=== PATIENT | female | born 1975 | race Caucasian/White ===

== ENCOUNTER 2016-05-22 14:36 | Emergency (ER) | payer OTHER ==
[~2016-05-22] VITALS: Ht 172.7 cm; Wt 87.4 kg
[~2016-05-22 14:36] MED LIST: CITA40TA4 PO; GABA-112 PO; HYDR-5688 PO; IBUP-103 PO; METH4PAK4 PO; ZNF4 PO
[2016-05-22 14:39] VITALS: BP 128/90; PULSE 105; TEMP 36.7; O2SAT 97; Ht 172.7 cm; Wt 87.4 kg
[2016-05-22] MEDS ORDERED: CLINDAMYCIN HCL 150 MG CAP PO ONE (15:15)
[2016-05-22] MEDS ORDERED: CLIN300C2 PO (15:24)
--- NOTE | 2016-05-22 15:25 | EMERGENCY ROOM VISIT NOTE ---
ED Visit Note First contact with patient: 15:06 CHIEF COMPLAINT: Left lower dental pain 1 week HISTORY OF PRESENT ILLNESS: Patient is a 40-year-old white female who presents emergency department for evaluation of left lower dental pain. Her symptoms started a couple of weeks ago. She was at the dentist last week and actually had the adjacent tooth taken care of, but they ran at a time before they could address the tooth in question. She notes progressively worse pain radiating to her jaw and her ear. She has an appointment with her dentist in 2 days. She has chronic pain related to her connective tissue disease and has W[place]ash 5/125 mg tablets at home. She's been taking one every 4 hours, but is only helping to take the edge off of her pain. She has not tried any ibuprofen. She notes swelling on the jawline that began today. No drainage or discharge from the tooth. No fever. REVIEW OF SYSTEMS: Review of systems as per HPI. All other systems reviewed were negative. At least 6 systems reviewed. PMH: Electronic medical records are reviewed and summarized as above/below. See Problem List. SOCIAL HISTORY: Patient lives at home. Smoker. PHYSICAL EXAM: Vital Signs: Reviewed Nurse's notes. CONSTITUTIONAL: Patient is a well-appearing 40-year-old white female who is awake and alert and in no acute distress. Vital signs are stable. EARS: Tympanic membranes intact, not inflamed, have normal contour. External canals clear. MOUTH: Overall the patient has fair dentition. She has multiple fillings and is status post multiple extractions. The left lower first molar in question has an obvious cavity, and is tender to percussion. There is slight swelling along the gumline although no focal abscess. Mucous membranes moist, no lesions , tongue and gums appear normal. THROAT: No pharyngeal injection, exudates, or tonsillar hypertrophy. Airway is patent. No trismus noted. FACE: Slight swelling noted along the right jaw line. No cellulitic changes. NECK: No lymphadenopathy. ED course: The patient was seen and assessed as above. She states that she can tolerate penicillin and amoxicillin, but generally responds better to clindamycin for dental issues. She was given 300 mg orally in the emergency department. She was instructed to follow-up with her dentist as she has scheduled. She was advised that she could increase the amount of hydrocodone that she is taking 21-2 tablets every 4 hours as needed for pain. She does not have any evidence for drainable abscess or facial cellulitis. I do not find any evidence for Benji angina. Problem List Medical Problems: (1) Asthma, Unspecified Status: Chronic (2) Chronic pain syndrome Status: Chronic (3) Diab Maria Guadalupe Wo Compl, Type Ii Or Unspec Type, Not Uncntrld Status: Resolved (4) Romero-Danlos syndrome Status: Chronic (5) Lumbar back pain Status: Resolved Surgical Problems: (1) History of dilatation and curettage Status: Resolved (2) History of tonsillectomy Status: Resolved (3) Hx of section Status: Resolved Current/Historical Medications Scheduled Citalopram (Citalopram Hydrobromide), 1 TAB PO HS Clindamycin Hcl (Cleocin), 1 CAP PO TID Gabapentin (Neurontin), 100 MG PO TID Methylprednisolone Dosepak (Medrol Dosepak), 0 PO DAILY Tizanidine (Zanaflex ), 4 MG PO HS Scheduled PRN Hydrocodone/Acetaminophen 5MG/325MG ([place] 5MG/325MG), 1-2 TABLET PO Q4H PRN for Pain Ibuprofen Tab (Advil), 800 MG PO Q6H PRN for Pain Allergies Coded Allergies: Amoxicillin (Verified Allergy, Unknown, Unknown Rxn, 01/07/16) Clavulanic Acid (Verified Allergy, Unknown, Unknown Rxn, 01/07/16) Vital Signs Date Time Temp Pulse Resp B/P Pulse Ox O2 Delivery O2 Flow Rate FiO2 05/22/16 14:39 36.7 105 18 128/90 97 Room Air Medications Administered Medications (Trade) Dose Ordered Sig/Lalo Route Start Time Stop Time Status Last Admin Dose Admin Clindamycin HCl (Cleocin Cap) 300 mg ONE ONCE PO 05/22/16 15:15 05/22/16 15:16 DC 05/22/16 15:30 300 MG Departure Information Impression Primary Impression: Dentalgia Prescriptions Clindamycin Hcl (CLEOCIN) 300 Mg Cap 1 CAP PO TID for 10 Days, #30 CAP Prov: Nahed Crandall PA 05/22/16 Referrals No Doctor, Assigned (PCP) Patient Instructions A Signature Page, [employer] Additional Instructions Continue [place] as prescribed for pain. Clindamycin 300 mg 1 tablet 3 times daily for 10 days for infection, finished this antibiotic unless instructed otherwise by your dentist. All antibiotics can cause diarrhea. If this occurs and you feel worse or it does not resolve in 1-2 days follow up with your doctor or return to the Emergency Department as this could be signs of serious underlying problems. Any medication can cause an allergic reaction, stop the pills immediately and return to the ER for rash, hives, breathing difficulties, or swelling. Ibuprofen(Motrin, Advil) may be used for fever or pain. Use 600mg every six hours as needed. Take with food. Avoid using more than 2400mg in a 24 hour period. Do not use 2400mg per day for more than three consecutive days without physician direction. Prolonged inappropriate use can lead to stomach upset or ulcers. Saltwater gargles after meals and before bedtime. Soft foods. Followup with your dentist for definitive management. You may also follow up with your primary care physician for pain/care management until you can be seen by your dentist.
[2016-08-12] MEDS ORDERED: BNT10 PO (14:50)
== END 2016-05-22 15:33 | disposition home or self-care (01) ==
LOC: C.EDB 14:37 → C.EDD 15:33
DX: K08.89 Other specified disorders of teeth and supporting structures (principal); Q79.6 Ehlers-Danlos syndromes; G89.4 Chronic pain syndrome; F17.200 Nicotine dependence, unspecified, uncomplicated; Z79.899 Other long term (current) drug therapy; Z88.0 Allergy status to penicillin

== ENCOUNTER 2016-08-11 08:34 | Observation (INO) | payer OTHER ==
[~2016-08-11] VITALS: Ht 172.7 cm; Wt 87.9 kg
[~2016-08-11 08:34] MED LIST changes: -HYDR-5688 PO; -METH4PAK4 PO
[2016-08-11] MEDS ORDERED: HYDROmorphone INJ 0.5 MG/0.5 ML SYR IV STA (08:40)
--- NOTE | 2016-08-11 08:58 | EMERGENCY ROOM VISIT NOTE ---
History Report prepared by Michel: Latoya Santos Under the Supervision of: Dr. Giancarlo Dave D.O. First contact with patient: 08:37 Chief Complaint: ABDOMINAL PAIN Stated Complaint: PAIN IN GALBLADER, NAUSEA History of Present Illness The patient is a 40 year old female who presents to the Emergency Room with complaints of persistent right sided abdominal pain starting 3 days ago. She currently rates a pain intensity of 7-8/10. She has worsening pain with eating. Her last meal was around 11 pm last night. She has a history of similar pain in the same area. She reports some mild nausea but denies vomiting. Her last bowel movement was last night and it was green in color. She denies any blood in stool. The patient denies fevers, chills, chest pain, shortness of breath, or any other complaints. She was referred to the Emergency Room by her PCP. The patient has a history of , appendectomy, and Romero-Danlos syndrome. She denies any history of cholecystectomy. Source of History: patient Onset: 3 days ago Position: abdomen (right sided) Symptom Intensity: 7-8/10 Timing: other (persistent) Modifying Factors (Worsening): eating Associated Symptoms: + nausea, No SOB, No chest pain, No chills, No fevers, No vomiting Review of Systems See above for pertinent positives & negatives. A total of 10 systems reviewed and were otherwise negative. Past Medical & Surgical Medical Problems: (1) Asthma, Unspecified (2) Chronic pain syndrome (3) Diab Maria Guadalupe Wo Compl, Type Ii Or Unspec Type, Not Uncntrld (4) Romero-Danlos syndrome (5) Lumbar back pain Surgical Problems: (1) History of dilatation and curettage (2) History of tonsillectomy (3) Hx of section Family History Diabetes mellitus FH: cancer FH: gallbladder disease FH: lung disease FH: myocardial infarction Heart disease Social History Smoking Status: Current Every Day Smoker Alcohol Use: none Drug Use: none Housing Status: lives with family Occupation Status: unemployed Current/Historical Medications Scheduled Citalopram (Citalopram Hydrobromide), 1 TAB PO HS Allergies Coded Allergies: Amoxicillin (Verified Allergy, Unknown, Unknown Rxn, 08/11/16) Clavulanic Acid (Verified Allergy, Unknown, Unknown Rxn, 08/11/16) Physical Exam Vital Signs Date Time Temp Pulse Resp B/P Pulse Ox O2 Delivery O2 Flow Rate FiO2 08/11/16 12:09 78 18 112/76 96 Room Air 08/11/16 09:42 79 16 112/77 99 Room Air 08/11/16 08:37 36.9 104 18 143/87 98 Room Air Physical Exam GENERAL: Patient is in obvious pain. HEENT: No acute trauma, normocephalic atraumatic, mucous membranes moist, no nasal congestion, no scleral icterus. NECK: No stridor, no adenopathy, no meningismus, trachea is midline. LUNGS: No dyspnea. Clear to auscultation and equal bilaterally. No wheeze, no rhonchi. HEART: Regular rate and rhythm. No murmurs, rubs, gallops appreciated. ABDOMEN: Soft, tenderness and guarding in the right upper quadrant, positive Corado's sign, normal active bowel sounds, no masses appreciated, no peritonitis. BACK: No midline tenderness, no CVA tenderness EXTREMITIES: Normal motion all extremities, no cyanosis, no edema. NEUROLOGIC: Alert and oriented, no acute motor or sensory deficits, no focal weakness, cranial nerves grossly intact. SKIN: No rash, no jaundice, no diaphoresis. Medical Decision & Procedures ER Provider Diagnostic Interpretation: Xray results as stated below per my and radiologist interpretation: CHEST 2 VIEWS ROUTINE HISTORY: Generalized abdominal pain. COMPARISON: None. FINDINGS: The lungs are clear. Cardiac silhouette is normal in size. No pleural effusions. No pneumothorax. IMPRESSION: No acute process. Electronically signed by: Duke Jacques M.D. 08/11/2016 10:27 AM Dictated Date/Time: 08/11/2016 10:19 AM US results as stated below per my review and radiologist interpretation: Right upper quadrant ultrasound GALLBLADDER-ABD LIMITED CLINICAL HISTORY: ABDOMINAL PAIN/GI nausea TECHNIQUE: Ultrasound COMPARISON STUDY: None FINDINGS: Normal gallbladder. No shadowing gallstones. Gallbladder wall 2 mm. Common bile duct 4 mm. 2.5 cm benign hemangioma the left hepatic lobe. Pancreas unremarkable. Right kidney is negative for hydronephrosis. IMPRESSION: 1. Negative ultrasound right upper quadrant. 2. Small benign hemangioma of the left hepatic lobe of the liver Electronically signed by: Jayden Ann M.D. 08/11/2016 9:42 AM Dictated Date/Time: 08/11/2016 9:39 AM Laboratory Results 08/11/16 08:55 Red Blood Count 4.46, Mean Corpuscular Volume 83.9, Mean Corpuscular Hemoglobin 28.5, Mean Corpuscular Hemoglobin Concent 34.0, Mean Platelet Volume 9.3, Neutrophils (%) (Auto) 66.5, Lymphocytes (%) (Auto) 22.8, Monocytes (%) (Auto) 9.2, Eosinophils (%) (Auto) 1.1, Basophils (%) (Auto) 0.2, Neutrophils # (Auto) 5.35, Lymphocytes # (Auto) 1.84, Monocytes # (Auto) 0.74, Eosinophils # (Auto) 0.09, Basophils # (Auto) 0.02 08/11/16 08:55 Test 08/11/16 08:50 08/11/16 08:55 Urine Color YELLOW Urine Appearance CLEAR (CLEAR) Urine pH 5.5 (4.5-7.5) Urine Specific [place] 1.016 (1.000-1.030) Urine Protein NEG (NEG) Urine Glucose (UA) NEG (NEG) Urine Ketones NEG (NEG) Urine Occult Blood 3+ (NEG) Urine Nitrite NEG (NEG) Urine Bilirubin NEG (NEG) Urine Urobilinogen NEG (NEG) Urine Leukocyte Esterase MODERATE (NEG) Urine WBC (Auto) 10-30 /hpf (0-5) Urine RBC (Auto) >30 /hpf (0-4) Urine Hyaline Casts (Auto) 1-5 /lpf (0-5) Urine Epithelial Cells (Auto) 20-30 /lpf (0-5) Urine Bacteria (Auto) NEG (NEG) Urine Test NEG (NEG) White Blood Count 8.06 K/uL (4.8-10.8) Red Blood Count 4.46 M/uL (4.2-5.4) Hemoglobin 12.7 g/dL (12.0-16.0) Hematocrit 37.4 % (37-47) Mean Corpuscular Volume 83.9 fL (80-100) Mean Corpuscular Hemoglobin 28.5 pg (25-34) Mean Corpuscular Hemoglobin Concent 34.0 g/dl (32-36) Platelet Count 329 K/uL (130-400) Mean Platelet Volume 9.3 fL (7.4-10.4) Neutrophils (%) (Auto) 66.5 % Lymphocytes (%) (Auto) 22.8 % Monocytes (%) (Auto) 9.2 % Eosinophils (%) (Auto) 1.1 % Basophils (%) (Auto) 0.2 % Neutrophils # (Auto) 5.35 K/uL (1.4-6.5) Lymphocytes # (Auto) 1.84 K/uL (1.2-3.4) Monocytes # (Auto) 0.74 K/uL (0.11-0.59) Eosinophils # (Auto) 0.09 K/uL (0-0.5) Basophils # (Auto) 0.02 K/uL (0-0.2) RDW Standard Deviation 45.4 fL (36.4-46.3) RDW Coefficient of Variation 14.7 % (11.5-14.5) Immature Granulocyte % (Auto) 0.2 % Immature Granulocyte # (Auto) 0.02 K/uL (0.00-0.02) Anion Gap 8.0 mmol/L (3-11) Est Creatinine Clear Calc Drug Dose 100.7 ml/min Estimated GFR () 97.3 Estimated GFR (Non- 83.9 BUN/Creatinine Ratio 9.0 (10-20) Calcium Level 9.0 mg/dl (8.5-10.1) Total Bilirubin 0.5 mg/dl (0.2-1) Direct Bilirubin 0.1 mg/dl (0-0.2) Aspartate Amino Transf (AST/SGOT) 12 U/L (15-37) Alanine Aminotransferase (ALT/SGPT) 18 U/L (12-78) Alkaline Phosphatase 83 U/L (45-117) Total Protein 8.3 gm/dl (6.4-8.2) Albumin 3.9 gm/dl (3.4-5.0) Lipase 184 U/L (73-393) Laboratory results as reviewed by me. Medications Administered Medications (Trade) Dose Ordered Sig/Lalo Route Start Time Stop Time Status Last Admin Dose Admin Sodium Chloride (Nss 1000ml) 1,000 ml @ 999 mls/hr Q1H1M IV 08/11/16 08:45 08/11/16 11:21 DC 08/11/16 09:02 999 MLS/HR Hydromorphone HCl (Dilaudid Inj) 0.5 mg NOW STAT IV 08/11/16 08:40 08/11/16 08:42 DC 08/11/16 09:03 0.5 MG Ondansetron HCl (Zofran Inj) 4 mg STK-MED ONCE .ROUTE 08/11/16 09:40 08/11/16 09:44 DC 08/11/16 09:46 4 MG ED Course 0837: The patient was evaluated in room A11B. A complete history and physical exam was performed. 0840: Dilaudid Inj 0.5 mg IV 0845: Sodium Chloride 1000 ml @ 999 mls/hr IV 1134: I discussed the patient's case with Dr. Grady, primary care physician with [facility]. 1145: I reevaluated the patient who is resting comfortably. 1251: Upon reevaluation, discussed results and treatment plan with the patient. She verbalized understanding and agreement with the treatment plan. I discussed the patient's case with Marleen Cazares PA-C with [facility]. The patient will be evaluated for further management. Medical Decision Differential diagnosis: Etiologies such as diverticulitis, PUD, biliary pathology, UTI, pancreatitis, obstruction, mesenteric ischemia, aortic pathology, infections, inflammatory bowel disease, renal colic, as well as others were entertained. Patient is a 40-year-old female without significant past medical history who presents from her primary care doctor's office Dr. Grady of [facility] with a presumed diagnosis of acute cholecystitis. Lab testing was largely unremarkable, she does have hematuria, I doubt that this is a renal stone as the pain localizes to the right upper quadrant is worse with food and she's had similar episodes in the past. There is no radiation down into the groin. Right upper quadrant ultrasound was unremarkable for acute cholecystitis. I discussed case with Dr. Grady, I have not been able to achieve adequate control the patient's nausea and pain is returning therefore we will admit her to the hospitalist service for further evaluation and treatment and probable HIDA scan as well as a formal surgical evaluation. Consults Time Called: 1127 Consulting Physician: Dr. Grady, primary care physician with [facility] Returned Call: 1134 I discussed the patient's case with Dr. Grady, primary care physician with [facility]. Additional Consults: Time Called: 1235 Consulted Physician: Marleen Cazares PA-C with [facility] Returned Call: 1251 Additional Comments: I discussed the patient's case with Marleen Cazares PA-C with [facility]. Impression Primary Impression: Biliary colic Additional Impressions: Nausea & vomiting Hematuria Scribe Attestation The scribe's documentation has been prepared under my direction and personally reviewed by me in its entirety. I confirm that the note above accurately reflects all work, treatment, procedures, and medical decision making performed by me. Departure Information Dispostion Being Evaluated By Hospitalist (discussed hospitlaist at 1252) Referrals No Doctor, Assigned (PCP) Patient Instructions My [facility] Problem Qualifiers Additional Impressions: Nausea & vomiting Vomiting type: unspecified Vomiting Intractability: intractable Qualified Codes: R11.2 - Nausea with vomiting, unspecified
[2016-08-11] MEDS: SODIUM CHLORIDE 0.9% 1000ML 1,000 ML IV SCH ×3 (09:02→15:51)
[2016-08-11 09:06] LABS: BASO % 0.2 %; BASO ABS # 0.02 K/uL (0-0.2); COMPLETE YES; EOS % 1.1 %; HEMATOCRIT 37.4 % (37-47); IG% 0.2 %; LYMPH % 22.8 %; LYMPH ABS # 1.84 K/uL (1.2-3.4); MEAN CELL VOLUME 83.9 fL (80-100); MEAN CORPUSCULAR HEMOGLOBIN 28.5 pg (25-34); MEAN PLATELET VOLUME 9.3 fL (7.4-10.4); MONO % 9.2 %; NEUT % 66.5 %; PLATELET COUNT 329 K/uL (130-400); RED BLOOD COUNT 4.46 M/uL (4.2-5.4); WHITE BLOOD COUNT 8.06 K/uL (4.8-10.8)
[2016-08-11 09:11] LABS: URINE APPEARANCE CLEAR (CLEAR); URINE BILIRUBIN NEG (NEG); URINE COLOR YELLOW; URINE EPITHELIAL CELL AUTO 20-30 /lpf (0-5); URINE NITRITE NEG (NEG); URINE PH 5.5 (4.5-7.5); URINE SPECIFIC GRAVITY 1.016 (1.000-1.030); UROBILINOGEN NEG (NEG)
[2016-08-11 09:12] LABS: MANUAL MICROSCOPIC REQUIRED? NO; REVIEW REQ? NO
[2016-08-11 09:21] LABS: CREATININE 0.87 mg/dl (0.60-1.20); POTASSIUM 3.5 mmol/L (3.5-5.1)
[2016-08-11] MEDS ORDERED: ONDANSETRON INJ 2 MG/ML 2 ML VIAL ONE (09:40)
--- NOTE | 2016-08-11 09:43 | DIAGNOSTIC IMAGING REPORT ---
Right upper quadrant ultrasound GALLBLADDER-ABD LIMITED CLINICAL HISTORY: ABDOMINAL PAIN/GI nausea TECHNIQUE: Ultrasound COMPARISON STUDY: None FINDINGS: Normal gallbladder. No shadowing gallstones. Gallbladder wall 2 mm. Common bile duct 4 mm. 2.5 cm benign hemangioma the left hepatic lobe. Pancreas unremarkable. Right kidney is negative for hydronephrosis. IMPRESSION: 1. Negative ultrasound right upper quadrant. 2. Small benign hemangioma of the left hepatic lobe of the liver Electronically signed by: Jayden Ann M.D. 08/11/2016 9:42 AM Dictated Date/Time: 08/11/2016 9:39 AM
[2016-08-11] MEDS ORDERED: ONDANSETRON INJ 2 MG/ML 2 ML VIAL IV STA (09:48)
--- NOTE | 2016-08-11 10:29 | DIAGNOSTIC IMAGING REPORT ---
CHEST 2 VIEWS ROUTINE HISTORY: Generalized abdominal pain. COMPARISON: None. FINDINGS: The lungs are clear. Cardiac silhouette is normal in size. No pleural effusions. No pneumothorax. IMPRESSION: No acute process. Electronically signed by: Duke Jacques M.D. 08/11/2016 10:27 AM Dictated Date/Time: 08/11/2016 10:19 AM
[2016-08-11] MEDS ORDERED: ACETAMINOPHEN 325 MG TAB PO PRN (13:45)
[2016-08-11] MEDS ORDERED: ONDANSETRON INJ 2 MG/ML 2 ML VIAL IV PRN (13:45)
[2016-08-11] MEDS ORDERED: MTR800 PO (13:47)
[2016-08-11] MEDS ORDERED: MULT-240 PO (13:47)
[2016-08-11] MEDS ORDERED: TIZA4CAP PO (13:47)
[2016-08-11] MEDS ORDERED: CHOL1TAB46 PO (13:47)
[2016-08-11 14:20] VITALS: BP 124/79; PULSE 76; TEMP 36.7; O2SAT 95
[2016-08-11] MEDS ORDERED: CIPROFLOXACIN / D5W 200 MG in PREMIXED IN D5W 100 ML IV ONE (14:20)
--- NOTE | 2016-08-11 14:33 | History and Physical ---
History & Physical Date & Time of Service: Aug 11, 2016 at 13:49 Chief Complaint: Pain In Galblader, Nausea Primary Care Physician: No Doctor, Assigned History of Present Illness Source: patient, clinic records This is a 40 year old female w/ PMH listed below who was sent to the ED from clinic by Dr. Grady for RUQ abdominal pain. This episode of pain started 3 days ago and has been constant with waxing and waning severity. Pain worsens with eating. She localizes pain to RUQ with intermittent radiation to her chest and between her shoulder blades. Pain improved with Dilaudid given in ER but is returning. Currently rates pain 4/10. Has associated nausea, dry heaving, belching and flatulence, globus sensation, fatigue. Last meal was supper last evening (fried chicken). For past 3 days stools are soft but formed with green color. She reports urinary frequency x 1 week. Denies fever, chills, cough, SOB , dysphagia, odynophagia, vomiting, hematochezia, melena, dysuria, hematuria. Patient reports similar episodes of abdominal pain in the past which are exacerbated by eating. She reports having HIDA scan for an episode 7 years ago which did not show gallbladder pathology. Has h/o and D&C. No other abdominal surgeries. She occasionally takes ibuprofen for chronic musculoskeletal pains. Past Medical/Surgical History Medical Problems: (3) Depression Status: Chronic (5) Romero-Danlos syndrome Status: Chronic (7) Fibromyalgia Status: Chronic (8) GERD (gastroesophageal reflux disease) Status: Chronic (10) Tobacco use disorder Status: Chronic Surgical Problems: (1) H/O dilation and curettage Status: Chronic (2) History of dilatation and curettage Status: Resolved (3) History of tonsillectomy Status: Resolved (4) Hx of section Status: Resolved (5) S/P section Status: Chronic (6) S/P tonsillectomy and adenoidectomy Status: Chronic Family History Diabetes mellitus FATHER FH: cancer FH: gallbladder disease MOTHER FH: lung disease FH: myocardial infarction FATHER Heart disease Social History Smoking Status: Current Every Day Smoker (1/2 ppd) Alcohol Use: none Drug Use: none Marital Status: Housing status: lives with significant other Multi-Drug Resistant Organisms History of MDRO: No Allergies Coded Allergies: Amoxicillin (Verified Allergy, Unknown, Unknown Rxn, 08/11/16) Clavulanic Acid (Verified Allergy, Unknown, Unknown Rxn, 08/11/16) Home Medications Scheduled Cholecalciferol (Vitamin D3), 5,000 UNITS PO DAILY Citalopram (Citalopram Hydrobromide), 1 TAB PO DAILY Multiple Vitamins W/ Minerals (Womens One Daily), 1 TAB PO DAILY Scheduled PRN Ibuprofen (Ibuprofen), 800 MG PO DAILY PRN for Pain Tizanidine (Zanaflex), 4 MG PO Q6 PRN for Muscle Spasms Review of Systems Ten point ROS performed with pertinent positives and negatives noted in HPI. Physical Exam Vital Signs Date Time Temp Pulse Resp B/P Pulse Ox O2 Delivery O2 Flow Rate FiO2 08/11/16 12:09 78 18 112/76 96 Room Air 08/11/16 09:42 79 16 112/77 99 Room Air 08/11/16 08:37 36.9 104 18 143/87 98 Room Air General Appearance: WD/WN, no apparent distress, + pertinent finding (alert cooperative 40 year old female, at bedside) Head: normocephalic, atraumatic Eyes: normal inspection, PERRL, EOMI ENT: hearing grossly normal, pharynx normal Neck: supple, trachea midline Respiratory/Chest: lungs clear, normal breath sounds, no respiratory distress, no accessory muscle use Cardiovascular: regular rate, rhythm, no murmur Abdomen/GI: normal bowel sounds, soft, + pertinent finding (tender in RUQ. no guarding. ) Back: + pertinent finding (diffuse paraspinal muscle tenderness) Extremities/Musculoskelatal: no calf tenderness, no pedal edema Neurologic/Psych: alert, normal mood/affect, oriented x 3, + pertinent finding (grossly nonfocal) Skin: normal color, warm/dry Diagnostics Laboratory Results Results Past 24 Hours Test 08/11/16 08:50 08/11/16 08:55 Range/Units Urine Color YELLOW Urine Appearance CLEAR CLEAR Urine pH 5.5 4.5-7.5 Urine Specific [place] 1.016 1.000-1.030 Urine Protein NEG NEG Urine Glucose (UA) NEG NEG Urine Ketones NEG NEG Urine Occult Blood 3+ NEG Urine Nitrite NEG NEG Urine Bilirubin NEG NEG Urine Urobilinogen NEG NEG Urine Leukocyte Esterase MODERATE NEG Urine WBC (Auto) 10-30 0-5 /hpf Urine RBC (Auto) >30 0-4 /hpf Urine Hyaline Casts (Auto) 1-5 0-5 /lpf Urine Epithelial Cells (Auto) 20-30 0-5 /lpf Urine Bacteria (Auto) NEG NEG Urine Test NEG NEG White Blood Count 8.06 4.8-10.8 K/uL Red Blood Count 4.46 4.2-5.4 M/uL Hemoglobin 12.7 12.0-16.0 g/dL Hematocrit 37.4 37-47 % Mean Corpuscular Volume 83.9 80-100 fL Mean Corpuscular Hemoglobin 28.5 25-34 pg Mean Corpuscular Hemoglobin Concent 34.0 32-36 g/dl Platelet Count 329 130-400 K/uL Mean Platelet Volume 9.3 7.4-10.4 fL Neutrophils (%) (Auto) 66.5 % Lymphocytes (%) (Auto) 22.8 % Monocytes (%) (Auto) 9.2 % Eosinophils (%) (Auto) 1.1 % Basophils (%) (Auto) 0.2 % Neutrophils # (Auto) 5.35 1.4-6.5 K/uL Lymphocytes # (Auto) 1.84 1.2-3.4 K/uL Monocytes # (Auto) 0.74 0.11-0.59 K/uL Eosinophils # (Auto) 0.09 0-0.5 K/uL Basophils # (Auto) 0.02 0-0.2 K/uL RDW Standard Deviation 45.4 36.4-46.3 fL RDW Coefficient of Variation 14.7 11.5-14.5 % Immature Granulocyte % (Auto) 0.2 % Immature Granulocyte # (Auto) 0.02 0.00-0.02 K/uL Sodium Level 140 136-145 mmol/L Potassium Level 3.5 3.5-5.1 mmol/L Chloride Level 108 98-107 mmol/L Carbon Dioxide Level 24 21-32 mmol/L Anion Gap 8.0 3-11 mmol/L Blood Urea Nitrogen 8 7-18 mg/dl Creatinine 0.87 0.60-1.20 mg/dl Est Creatinine Clear Calc Drug Dose 100.7 ml/min Estimated GFR () 97.3 Estimated GFR (Non- 83.9 BUN/Creatinine Ratio 9.0 10-20 Random Glucose 98 70-99 mg/dl Calcium Level 9.0 8.5-10.1 mg/dl Total Bilirubin 0.5 0.2-1 mg/dl Direct Bilirubin 0.1 0-0.2 mg/dl Aspartate Amino Transf (AST/SGOT) 12 15-37 U/L Alanine Aminotransferase (ALT/SGPT) 18 12-78 U/L Alkaline Phosphatase 83 45-117 U/L Total Protein 8.3 6.4-8.2 gm/dl Albumin 3.9 3.4-5.0 gm/dl Lipase 184 73-393 U/L Diagnostic Radiology Right upper quadrant ultrasound GALLBLADDER-ABD LIMITED CLINICAL HISTORY: ABDOMINAL PAIN/GI nausea TECHNIQUE: Ultrasound COMPARISON STUDY: None FINDINGS: Normal gallbladder. No shadowing gallstones. Gallbladder wall 2 mm. Common bile duct 4 mm. 2.5 cm benign hemangioma the left hepatic lobe. Pancreas unremarkable. Right kidney is negative for hydronephrosis. IMPRESSION: 1. Negative ultrasound right upper quadrant. 2. Small benign hemangioma of the left hepatic lobe of the liver CHEST 2 VIEWS ROUTINE HISTORY: Generalized abdominal pain. COMPARISON: None. FINDINGS: The lungs are clear. Cardiac silhouette is normal in size. No pleural effusions. No pneumothorax. IMPRESSION: No acute process. EKG NSR, 81 bpm, no ST or T wave abnormality Impression Assessment and Plan RUQ ABDOMINAL PAIN Suspicious for biliary colic RUQ ultrasound- 1. Negative ultrasound right upper quadrant. 2. Small benign hemangioma of the left hepatic lobe of the liver Afebrile, no leukocytosis, LFT's WNL, lipase WNL NPO, IVF's, PRN analgesics and antiemetics Check HIDA scan Consult GI POSSIBLE UTI Symptomatic with frequency x 1 week UA possibly infected: 3+ occult blood, moderate leuk esterase, WBC 10-30, RBC > 30, epithelial 20-30 Check urine culture Will place on empiric Ciprofloxacin DEPRESSION/ ANXIETY Stable; continue citalopram FIBROMYALGIA Continue PRN tizanidine DVT PROPHYLAXIS SCD's FULL CODE DISPOSITION Obs to med/surg Patient seen in collaboration with Dr. Diaz. Please see his addendum. Attending Addendum Pt was seen and examined. Agreed with Joanna WAN's physical exam, assessment and plan. 40 year old female w/ PMH Fibromyalgia, biliary colic, chronic abdominal pain, tobacco abuse was sent to the ED from clinic by Dr. Grady for RUQ abdominal pain associated with nausea. Pt said pain started about 3 days ago , constant and localizes in RUQ, radiating to her chest and between her shoulder blades. received Dilaudid in ER that helped with the pain. she said that she has been having loose stool. she has been having urinary frequency. Denies any fever, dysuria and palpitation. General- no acute distress Head- atraumatic Eyes- PERRL, EOMI ENT- oropharynx clear Neck- supple, no JVD Lungs- clear to auscultation, no wheezing Heart- regular rhythm; no murmur Abdomen- RUQ tenderness, soft, no guarding Extremities- no pretibial edema, no calf tenderness A/p RUQ ABDOMINAL PAIN Ultrasound abdomen showed negative ultrasound right upper quadrant and a small benign hemangioma of the left hepatic lobe of the liver supportive management with IVF, zofran and pain control keep NPO Check HIDA scan Consult GI Lab, imaging and EKG reviewed by me Please refer to Joanna WAN's documentation for other problems. Twan Diaz MD VTE Prophylaxis VTE Risk Assessment Done? Y/N: Yes Risk Level: Low
[2016-08-11] MEDS ORDERED: IV FLUIDS COMPLETED PRN (14:45)
[2016-08-11 15:48] VITALS: BP 120/79; PULSE 73; TEMP 36.8; O2SAT 97
[2016-08-11] MEDS: CIPROFLOXACIN / D5W 200 MG in PREMIXED IN D5W 100 ML IV SCH (15:52)
[2016-08-11 16:30] VITALS: BP 120/79; PULSE 73; TEMP 36.8; O2SAT 95; Ht 172.7 cm; Wt 87.9 kg
[2016-08-11] MEDS: MoRPHine SULFATE 4 MG/ML 1 ML CARP\\VIAL IV PRN (18:12)
[2016-08-12] VITALS: O2SAT 95
[2016-08-12 00:42] VITALS: BP 115/74; PULSE 90; TEMP 36.6; O2SAT 95
[2016-08-12] MEDS: CIPROFLOXACIN / D5W 200 MG in PREMIXED IN D5W 100 ML IV SCH (04:03)
[2016-08-12] MEDS: SODIUM CHLORIDE 0.9% 1000ML 1,000 ML IV SCH ×2 (04:03→12:33)
[2016-08-12] MEDS: MoRPHine SULFATE 4 MG/ML 1 ML CARP\\VIAL IV PRN (04:08)
[2016-08-12 08:06] VITALS: BP 107/74; PULSE 72; TEMP 36.8; O2SAT 94
[2016-08-12] MEDS: CITALOPRAM 40 MG TAB PO SCH ×2 (08:31→12:33)
--- NOTE | 2016-08-12 10:44 | DIAGNOSTIC IMAGING REPORT ---
NUCLEAR MEDICINE HEPATOBILIARY SCAN CLINICAL HISTORY: Right upper quadrant abdominal pain COMPARISON STUDY: Gallbladder ultrasound dated 08/11/2016, nuclear medicine hepatobiliary scan dated 09/09/2009 FINDINGS: The patient was injected with 4.9 mCi of technetium 99m Choletec. Sequential anterior imaging was performed. Hepatic excretion appears unremarkable. There is normal passage of activity into small bowel. The gallbladder was first visualized on the 15 minute image. IMPRESSION: Normal study. No evidence of cystic duct obstruction. Electronically signed by: Wm Devine M.D. 08/12/2016 10:43 AM Dictated Date/Time: 08/12/2016 10:38 AM
--- NOTE | 2016-08-12 14:49 | Progress Note ---
Internal Med Progress Note Date of Service: Aug 12, 2016. Provider Documentation: SUBJECTIVE: Patient is doing well. RUQ abdominal pain + but improved, near her baseline No nausea, vomiting, diarrhea OBJECTIVE: Vital Signs-as noted below Exam: General-AAOX3, no distress Eyes-No icterus Neck-Supple Lungs-AEBE, no wheezing, crackles Heart-S1, S2 normal, no murmurs Abdomen-Soft, non tender, non distended, BS present Extremities-No edema Lab data as noted below. ASSESSMENT & PLAN: RUQ ABDOMINAL PAIN, Likely functional Ruled out acute inflammatory conditions Patient does have chronic RUQ abdominal pain, but intensity worsened which brought her to ED. Afebrile, no leucocytosis -Work up- US- 1. Negative ultrasound right upper quadrant. 2. Small benign hemangioma of the left hepatic lobe of the liver ; HIDA Scan- negative; LFTS/ Lipase - normal -Consulted GI- Likely functional. Recommends Dicyclomine TID and outpatient EGD to rule out esophagitis ABNORMAL UA -Received Empiric dose of Cipro, however, Urine cx- negative for any significant growth UA- Dirty with 20-30 epithelial cells. No indication for antibiotics DEPRESSION/ ANXIETY -Stable; continue citalopram FIBROMYALGIA -Continue PRN tizanidine DVT PROPHYLAXIS -SCD's FULL CODE DISPOSITION Obs to med/surg Eager to be discharged Cleared by GI for discharge Vital Signs: Date Time Temp Pulse Resp B/P Pulse Ox O2 Delivery O2 Flow Rate FiO2 08/12/16 08:06 36.8 72 16 107/74 94 Room Air 08/12/16 08:00 Room Air 08/12/16 00:42 36.6 90 18 115/74 95 Room Air 08/12/16 00:00 95 Room Air 08/11/16 16:30 36.8 73 16 120/79 95 Room Air 08/11/16 15:48 36.8 73 16 120/79 97 Room Air Lab Results: Microbiology Results 08/11/16 Urine Culture - Preliminary, Resulted NO GROWTH - LESS THAN 1,000 COLONIES/...
[2016-08-12] MEDS ORDERED: BNT10 PO (14:50)
--- NOTE | 2016-08-12 14:52 | Gastrointestinal Consultation ---
Gastrointestinal Consultation Date of Consultation: Aug 12, 2016 Attending Physician: Dr. Caldwell Consulting Physician: Dr. Palma Reason for Consultation: RUQ pain History of Present Illness Patient is a 40 year old female patient of Dr. Guzman (awaiting a new PCP) who presented to the ED yesterday for RUQ pain. GI is consulted for this pain. She tells us that she has had this pain for many years. The pain is a pressure, in the epigastric and RUQ areas and is worse after eating, persisting 3-4 hrs It is often accompanied by nausea. Rare vomiting, about twice a month. She also has nightly reflux, felt as retro sternal burning pain. She has never undergone endoscopy. She was prescribed a PPI but found it didn't help so she stopped that and uses chewable Gaviscon prn. She has not tried any IBS meds. She has Romero-Danlos syndrome as well as fibromyalgia and is maintained on Citalopram. She has been on narcotics in the past but not recently. No hematemesis, melena, no hematochezia, no unexplained weight loss. Since arrival, RUQ US and HIDA were normal, CBC, CMP and lipase were also normal. She has been awake, alert, oriented, hemodynamically stable and pain and nausea are back to her baseline. Past Medical/Surgical History Medical Problems: (1) Asthma, Unspecified Status: Chronic (2) Biliary colic Status: Acute (3) Chronic pain syndrome Status: Chronic (4) Dentalgia Status: Acute (5) Romero-Danlos syndrome Status: Chronic (6) Hematuria Status: Acute (7) Nausea & vomiting Status: Acute Past Medical History: 1. Depression 2. Romero-Danlos 3. Fibromyalgia 4. GERD 5. Smoker Past Surgical History: 1. D&C 2. Tonsillectomy and adenoidectomy 3. Family History Diabetes mellitus FATHER FH: cancer FH: gallbladder disease MOTHER FH: lung disease FH: myocardial infarction FATHER Heart disease Social History Smoking Status: Current Every Day Smoker Alcohol Use: none Drug Use: none Marital Status: Housing Status: lives with family Allergies Coded Allergies: Amoxicillin (Verified Allergy, Unknown, Unknown Rxn, 08/11/16) Clavulanic Acid (Verified Allergy, Unknown, Unknown Rxn, 08/11/16) Current Medications Home Meds and Scripts Medications Dose Route/Sig Max Daily Dose Days Date Category Vitamin D3 (Cholecalciferol) 5,000 Unit Tab 5,000 Units PO DAILY 08/11/16 Reported Zanaflex (Tizanidine HCl) 4 Mg Cap 4 Mg PO Q6 PRN 08/11/16 Reported Womens One Daily (Multiple Vitamins W/ Minerals) 1 Tab Tab 1 Tab PO DAILY 08/11/16 Reported Ibuprofen 800 Mg Tab 800 Mg PO DAILY PRN 08/11/16 Reported Citalopram Hydrobromide (Citalopram) 40 Mg Tab 1 Tab PO DAILY 90 01/07/16 Reported Review of Systems Constitutional: No chills, No fever, No sweats, No weakness, No weight loss Eyes: No eye pain, No redness ENT: No pain on swallowing, No sore throat, No trouble swallowing Respiratory: No cough, No dyspnea on exertion, No shortness of breath, No wheezing Cardiac: No chest pain, No edema, No palpitations Abdomen: + dysphagia (occasional), + nausea, + pain, + see HPI, + vomiting, No GI bleeding, No acolic stools, No constipation, No dark urine, No diarrhea, No jaundice, No odynophagia Female : No dysuria Neuro: No balance problems, No memory loss, No numbness/tingling, No vertigo, No weakness Psych: No anxiety, No depression symptoms, No insomnia Heme: No abnormal bleeding/bruising, No night sweats Endo: No excessive thirst, No excessive urination Skin: No itch, No jaundice, No new/changing skin lesions, No rash Physical Exam Date Time Temp Pulse Resp B/P Pulse Ox O2 Delivery O2 Flow Rate FiO2 08/12/16 08:06 36.8 72 16 107/74 94 Room Air 08/12/16 08:00 Room Air 08/12/16 00:42 36.6 90 18 115/74 95 Room Air 08/12/16 00:00 95 Room Air 08/11/16 16:30 36.8 73 16 120/79 95 Room Air 08/11/16 15:48 36.8 73 16 120/79 97 Room Air General Appearance: + mild distress Eyes: normal inspection, EOMI Neck: supple, no adenopathy, thyroid normal, no JVD Respiratory/Chest: chest non-tender, lungs clear, normal breath sounds, no accessory muscle use Cardiovascular: regular rate, rhythm, no JVD, no murmur Abdomen: normal bowel sounds, soft, no organomegaly, + tenderness (epigastric and RUQ tenderness) Extremities: normal inspection, no pedal edema, normal capillary refill Neurologic/Psych: alert, normal mood/affect, oriented x 3 Skin: normal color, no jaundice, warm/dry, no rash Laboratory Results CBC, CMP, lipase normal late yesterday. Impression Patient is a 40 year old female with acute on chronic abdominal pain, now back to baseline. Testing has ruled out gallbladder disease. Differentials are GERD, esophagitis, gastritis, functional dyspepsia, IBS, gastroparesis. Plan 1. Dicyclomine 10mg ac/hs. 2. Protonix 40mg daily. 3. OP EGD and OP GI office visit. I will ask our schedulers to contact her to arrange. ATTESTATION: I have performed a history and physical examination of this patient and reviewed the electronic record. Specifically on physical examination there is mild epigastric and RUQ tenderness. I have discussed the case with NICOLA Angela. The above note reflects my findings, conclusions, and recommendations. Trell Palma MD
--- NOTE | 2016-08-12 14:53 | Discharge Summary ---
Discharge Summary Date of Service Aug 12, 2016. Discharge Summary Admission Date: Aug 11, 2016 at 13:21 Discharge Date: Aug 12, 2016 Discharge Disposition: Home Principal Diagnosis: 1. RUQ pain, likely functional, acute inflammatory conditions ruled out Secondary Diagnoses/Problems: 1. Depression/Anxiety 2. Fibromyalgia Procedures: US gall bladder HIDA Scan Consultations: GI Pending Studies/Follow-Up: Instructions / Follow-Up Instructions / Follow-Up MEDICATION CHANGES: No changes in medications FOLLOW UP 1. With Dr Solitario (PCP) ON 08/17/16 at 3:30 PM 2. Follow up with GI for Upper endoscopy (EGD) Medication Reconciliation New Medications: Dicyclomine HCl (Dicyclomine HCl) 10 Mg Cap 10 MG PO TID for 30 Days, #90 TAB Continued Medications: Cholecalciferol (Vitamin D3) 5,000 Unit Tab 5000 UNITS PO DAILY Citalopram (Citalopram Hydrobromide) 40 Mg Tab 1 TAB PO DAILY for 90 Days, #90 TAB 1 Refill Multiple Vitamins W/ Minerals (Womens One Daily) 1 Tab Tab 1 TAB PO DAILY Tizanidine (Zanaflex) 4 Mg Cap 4 MG PO Q6 PRN for Muscle Spasms, CAP Discontinued Medications: Ibuprofen (Ibuprofen) 800 Mg Tab 800 MG PO DAILY PRN for Pain Admission Information HPI (per Admitting provider): This is a 40 year old female w/ PMH listed below who was sent to the ED from clinic by Dr. Grady for RUQ abdominal pain. This episode of pain started 3 days ago and has been constant with waxing and waning severity. Pain worsens with eating. She localizes pain to RUQ with intermittent radiation to her chest and between her shoulder blades. Pain improved with Dilaudid given in ER but is returning. Currently rates pain 4/10. Has associated nausea, dry heaving, belching and flatulence, globus sensation, fatigue. Last meal was supper last evening (fried chicken). For past 3 days stools are soft but formed with green color. She reports urinary frequency x 1 week. Denies fever, chills, cough, SOB , dysphagia, odynophagia, vomiting, hematochezia, melena, dysuria, hematuria. Patient reports similar episodes of abdominal pain in the past which are exacerbated by eating. She reports having HIDA scan for an episode 7 years ago which did not show gallbladder pathology. Has h/o and D&C. No other abdominal surgeries. She occasionally takes ibuprofen for chronic musculoskeletal pains. Physical Exam (per Admitting): General Appearance: WD/WN, no apparent distress, + pertinent finding (alert cooperative 40 year old female, at bedside) Head: normocephalic, atraumatic Eyes: normal inspection, PERRL, EOMI ENT: hearing grossly normal, pharynx normal Neck: supple, trachea midline Respiratory/Chest: lungs clear, normal breath sounds, no respiratory distress, no accessory muscle use Cardiovascular: regular rate, rhythm, no murmur Abdomen/GI: normal bowel sounds, soft, + pertinent finding (tender in RUQ. no guarding. ) Back: + pertinent finding (diffuse paraspinal muscle tenderness) Extremities/Musculoskelatal: no calf tenderness, no pedal edema Neurologic/Psych: alert, normal mood/affect, oriented x 3, + pertinent finding (grossly nonfocal) Skin: normal color, warm/dry Hospital Course RUQ ABDOMINAL PAIN, Likely functional Ruled out acute inflammatory conditions Patient does have chronic RUQ abdominal pain, but intensity worsened which brought her to ED. Afebrile, no leucocytosis. Tolerating PO diet well. -Work up- US- 1. Negative ultrasound right upper quadrant. 2. Small benign hemangioma of the left hepatic lobe of the liver ; HIDA Scan- negative; LFTS/ Lipase - normal -Consulted GI- Likely functional. Recommends Dicyclomine TID and outpatient EGD to rule out esophagitis ABNORMAL UA -Received Empiric dose of Cipro, however, Urine cx- negative for any significant growth UA- Dirty with 20-30 epithelial cells. No indication for antibiotics DEPRESSION/ ANXIETY -Stable; continue citalopram FIBROMYALGIA -Continue PRN tizanidine DVT PROPHYLAXIS -SCD's FULL CODE DISPOSITION Obs to med/surg Eager to be discharged Cleared by GI for discharge Total time spent on discharge = 25 minutes This includes examination of the patient, discharge planning, medication reconciliation, and communication with other providers. Discharge Instructions Discharge Goals Goal(s): Diagnostic testing, Therapeutic intervention Activity Recommendations Activity Limitations: resume your previous activity . Instructions / Follow-Up Instructions / Follow-Up MEDICATION CHANGES: No changes in medications FOLLOW UP 1. With Dr Solitario (PCP) ON 08/17/16 at 3:30 PM 2. Follow up with GI for Upper endoscopy (EGD) Current Hospital Diet Patient's current hospital diet: Regular Diet Discharge Diet Recommended Diet: Regular Diet Pending Studies Studies pending at discharge: no Medical Emergencies . Who to Call and When: Medical Emergencies: If at any time you feel your situation is an emergency, please call 911 immediately. . Non-Emergent Contact Non-Emergency issues call your: Primary Care Provider . . "Provider Documentation" section prepared by Sulma Caldwell. VTE Core Measure Inpt VTE Proph given/why not?: Gabriele Block, SCD's
[2016-08-12 15:07] VITALS: BP 107/74; PULSE 72; TEMP 36.8; O2SAT 94
== END 2016-08-12 15:33 | disposition home or self-care (01) ==
LOC: ENRESERVTM → ENRESERVDT → C.EDB 08:35 → CANBEDREQ 12:44 → C.MS2W 13:21
PROVIDERS: ADMIT Internal Medicine; ATTEND Internal Medicine
DX: R10.11 Right upper quadrant pain (principal); R11.2 Nausea with vomiting, unspecified; Q79.6 Ehlers-Danlos syndromes; M79.7 Fibromyalgia; J45.909 Unspecified asthma, uncomplicated; K21.9 Gastro-esophageal reflux disease without esophagitis; F32.9 Major depressive disorder, single episode, unspecified; F17.200 Nicotine dependence, unspecified, uncomplicated; Z88.0 Allergy status to penicillin; Z83.3 Family history of diabetes mellitus; Z83.6 Family history of other diseases of the respiratory system; Z82.49 Family history of ischemic heart disease and other diseases of the circulatory system

== ENCOUNTER 2016-10-06 08:24 | Emergency (ER) | payer OTHER ==
[~2016-10-06 08:24] MED LIST changes: +BNT10 PO; +CHOL1TAB46 PO; -GABA-112 PO; -IBUP-103 PO; +MULT-240 PO; +TIZA4CAP PO; -ZNF4 PO
[2016-10-06 08:26] VITALS: Ht 172.7 cm
[2016-10-06] MEDS ORDERED: DICY10CA55 PO (08:37)
[2016-10-06] MEDS ORDERED: OMEP40CA41 PO (08:38)
[2016-10-06] MEDS ORDERED: RANI150T3 PO (08:38)
[2016-10-06] MEDS ORDERED: KETOROLAC TROMETHAMINE 30 MG/ML VIAL IV STA (08:46)
[2016-10-06] MEDS ORDERED: SODIUM CHLORIDE 0.9% 500ML 500 ML IV STA (08:46)
[2016-10-06] MEDS ORDERED: SODIUM CHLORIDE 0.9% 1000ML 1,000 ML IV STA (08:46)
[2016-10-06] MEDS ORDERED: ONDANSETRON INJ 2 MG/ML 2 ML VIAL IV STA (08:46)
--- NOTE | 2016-10-06 09:01 | EMERGENCY ROOM VISIT NOTE ---
History Report prepared by Michel: Alvin Mills Under the Supervision of: Dr. Viry Plaza M.D. First contact with patient: 08:37 Chief Complaint: ABDOMINAL PAIN Stated Complaint: ABDOMINAL PAIN, VOMITING, DIARRHEA, SHOULDER PAIN History of Present Illness The patient is a 40 year old female who presents to the Emergency Room with complaints of persistent vomiting and diarrhea that began on Monday, two days prior to arrival. The patient states that she had her first bout of diarrhea on Monday of this week, which worsened significantly last night after eating toast. She had multiple bouts of diarrhea last night and vomited several times as well. She also complains of pain in her right shoulder. The patient had a similar episode in July of this year, but notes this episode is much more severe. She has had an upper endoscopy and ultra sound recently, both of which were unremarkable. Source of History: patient Onset: Two days [employer] Position: other (Gastrointestinal) Quality: other (Vomiting, diarrhea) Timing: other (Persistent) Note: Pain in the right shoulder. Review of Systems See HPI for pertinent positives & negatives. A total of 10 systems reviewed and were otherwise negative. Past Medical & Surgical Medical Problems: (1) Abdominal pain (2) Asthma, Unspecified (3) Chronic pain syndrome (4) Depression (5) Diab Maria Guadalupe Wo Compl, Type Ii Or Unspec Type, Not Uncntrld (6) Romero-Danlos syndrome (7) Romero-Danlos syndrome (8) Fibromyalgia (9) GERD (gastroesophageal reflux disease) (10) Lumbar back pain (11) Tobacco use disorder Surgical Problems: (1) H/O dilation and curettage (2) History of dilatation and curettage (3) History of tonsillectomy (4) Hx of section (5) S/P section (6) S/P tonsillectomy and adenoidectomy Family History Diabetes mellitus FATHER FH: cancer FH: gallbladder disease MOTHER FH: lung disease FH: myocardial infarction FATHER Heart disease Social History Smoking Status: Current Every Day Smoker Alcohol Use: none Drug Use: none Marital Status: Housing Status: lives with family Current/Historical Medications Scheduled Cholecalciferol (Vitamin D3), 5,000 UNITS PO DAILY Citalopram (Citalopram Hydrobromide), 40 MG PO DAILY Dicyclomine Hcl (Bentyl), 10 MG PO QID Multiple Vitamins W/ Minerals (Womens One Daily), 1 TAB PO DAILY Omeprazole (Prilosec), 40 MG PO BID Ranitidine Hcl (Zantac), Unknown Dose PO HS Scheduled PRN Promethazine (Phenergan Suppository), 25 MG UT Q6H PRN for Nausea Tizanidine (Zanaflex), 4 MG PO Q6 PRN for Muscle Spasms Allergies Coded Allergies: Amoxicillin (Verified Allergy, Unknown, Unknown Rxn, 10/06/16) Clavulanic Acid (Verified Allergy, Unknown, Unknown Rxn, 10/06/16) Physical Exam Vital Signs Date Time Temp Pulse Resp B/P Pulse Ox O2 Delivery O2 Flow Rate FiO2 10/06/16 12:45 37.1 96 18 105/67 97 10/06/16 11:48 96 18 105/67 97 Room Air 10/06/16 10:14 91 16 100/62 97 Room Air 10/06/16 08:26 37.1 140 20 116/81 99 Room Air Physical Exam Vital signs reviewed. General: somewhat ill-appearing female, in no significant distress. HEENT: No scleral icterus, PERRLA, neck supple. Atraumatic. Cardiovascular: Regular rate and rhythm, no extra sounds. Pulmonary: Clear to auscultation bilaterally, normal work of breathing. Abdomen: Mild distention. Minimal tympani to percussion with mild distention. Soft, nontender, positive bowel sounds. No peritoneal signs. Musculoskeletal: Atraumatic, no peripheral edema. Neurologic: Patient awake alert and oriented x 3 Skin: Warm, dry, no rash Medical Decision & Procedures ER Provider Diagnostic Interpretation: Radiology results as stated below per my review and radiologist interpretation: CHEST AND ABDOMEN 2 VIEWS HISTORY: vomiting, diarrhea, recurrent COMPARISON: Chest 08/11/2016. FINDINGS: The lungs are clear. The cardiomediastinal silhouette is within normal limits. There is no pneumoperitoneum or pneumatosis. The bowel gas pattern is unremarkable. No evidence for bowel obstruction. There are 2 large left renal calculi. Dominant stone within the upper pole demonstrates a staghorn configuration and measures 3.5 cm. Fluid levels within the colon. IMPRESSION: 1. No acute process within the chest. 2. Left-sided nephrolithiasis. 3. Fluid levels within the colon. This could represent a gastroenteritis. No evidence for bowel obstruction. Electronically signed by: Duke Jacques M.D. 10/06/2016 10:10 AM Dictated Date/Time: 10/06/2016 10:07 AM Laboratory Results 10/06/16 08:40 Red Blood Count 4.52, Mean Corpuscular Volume 82.3, Mean Corpuscular Hemoglobin 27.0, Mean Corpuscular Hemoglobin Concent 32.8, Mean Platelet Volume 9.2, Neutrophils (%) (Auto) 90.9, Lymphocytes (%) (Auto) 6.0, Monocytes (%) (Auto) 2.7, Eosinophils (%) (Auto) 0.3, Basophils (%) (Auto) 0.0, Neutrophils # (Auto) 6.68, Lymphocytes # (Auto) 0.44, Monocytes # (Auto) 0.20, Eosinophils # (Auto) 0.02, Basophils # (Auto) 0.00 10/06/16 08:40 Test 10/06/16 08:40 10/06/16 09:40 White Blood Count 7.35 K/uL (4.8-10.8) Red Blood Count 4.52 M/uL (4.2-5.4) Hemoglobin 12.2 g/dL (12.0-16.0) Hematocrit 37.2 % (37-47) Mean Corpuscular Volume 82.3 fL (80-100) Mean Corpuscular Hemoglobin 27.0 pg (25-34) Mean Corpuscular Hemoglobin Concent 32.8 g/dl (32-36) Platelet Count 330 K/uL (130-400) Mean Platelet Volume 9.2 fL (7.4-10.4) Neutrophils (%) (Auto) 90.9 % Lymphocytes (%) (Auto) 6.0 % Monocytes (%) (Auto) 2.7 % Eosinophils (%) (Auto) 0.3 % Basophils (%) (Auto) 0.0 % Neutrophils # (Auto) 6.68 K/uL (1.4-6.5) Lymphocytes # (Auto) 0.44 K/uL (1.2-3.4) Monocytes # (Auto) 0.20 K/uL (0.11-0.59) Eosinophils # (Auto) 0.02 K/uL (0-0.5) Basophils # (Auto) 0.00 K/uL (0-0.2) RDW Standard Deviation 44.5 fL (36.4-46.3) RDW Coefficient of Variation 14.9 % (11.5-14.5) Immature Granulocyte % (Auto) 0.1 % Immature Granulocyte # (Auto) 0.01 K/uL (0.00-0.02) Anion Gap 8.0 mmol/L (3-11) Estimated GFR () 114.5 Estimated GFR (Non- 98.8 BUN/Creatinine Ratio 19.9 (10-20) Calcium Level 8.4 mg/dl (8.5-10.1) Magnesium Level 2.1 mg/dl (1.8-2.4) Total Bilirubin 0.8 mg/dl (0.2-1) Direct Bilirubin 0.2 mg/dl (0-0.2) Aspartate Amino Transf (AST/SGOT) 8 U/L (15-37) Alanine Aminotransferase (ALT/SGPT) 13 U/L (12-78) Alkaline Phosphatase 73 U/L (45-117) Total Protein 7.8 gm/dl (6.4-8.2) Albumin 3.7 gm/dl (3.4-5.0) Lipase 85 U/L (73-393) Urine Color DK YELLOW Urine Appearance CLEAR (CLEAR) Urine pH 5.0 (4.5-7.5) Urine Specific [place] 1.028 (1.000-1.030) Urine Protein NEG (NEG) Urine Glucose (UA) NEG (NEG) Urine Ketones TRACE (NEG) Urine Occult Blood 2+ (NEG) Urine Nitrite NEG (NEG) Urine Bilirubin NEG (NEG) Urine Urobilinogen NEG (NEG) Urine Leukocyte Esterase MODERATE (NEG) Urine WBC (Auto) 10-30 /hpf (0-5) Urine RBC (Auto) >30 /hpf (0-4) Urine Hyaline Casts (Auto) 1-5 /lpf (0-5) Urine Epithelial Cells (Auto) >30 /lpf (0-5) Urine Bacteria (Auto) NEG (NEG) Urine Test NEG (NEG) Date/Time Source Procedure Growth Status 10/06/16 09:40 Urine , Clean Catch Urine Culture - Final MORE THAN THREE TYPES OF ORGANISMS UT... Complete Laboratory results per my review. Medications Administered Medications (Trade) Dose Ordered Sig/Lalo Route Start Time Stop Time Status Last Admin Dose Admin Sodium Chloride 500 ml @ 999 mls/hr Q31M STAT IV 10/06/16 08:46 10/06/16 09:16 DC 10/06/16 09:30 999 MLS/HR Sodium Chloride (Nss 1000ml) 1,000 ml @ 200 mls/hr Q5H STAT IV 10/06/16 08:46 10/06/16 13:02 DC 10/06/16 08:56 200 MLS/HR Ondansetron HCl (Zofran Inj) 4 mg NOW STAT IV 10/06/16 08:46 10/06/16 08:48 DC 10/06/16 08:57 4 MG Ketorolac Tromethamine (Toradol Inj) 30 mg NOW STAT IV 10/06/16 08:46 10/06/16 08:48 DC 10/06/16 08:57 30 MG ECG Indication: vomiting Rate (beats per minute): 111 Rhythm: sinus bradycardia Findings: T-wave inversion (Inferior), other (T-wave flattening laterally) ED Course 0845: Past medical records reviewed. The patient was evaluated in room B12B. A complete history and physical examination was performed. 0846: Ordered Toradol 30 mg IV, Zofran 4 mg IV, Sodium Chloride 1000 mL @ 200 mL /hr IV, Sodium Chloride 500 mL @ 999 mL/hr IV. 1211: Upon reevaluation, the patient appeared to have improvement of her symptoms. I discussed findings with her. She verbalized agreement of the treatment plan. The patient was discharged home. Medical Decision The patient's history was concerning for nausea, vomiting, diarrhea, and abdominal pain. Differential diagnosis: Etiologies such as gastroenteritis, food borne illness, infections, appendicitis , diverticulitis, inflammatory bowel disease, obstruction, GI bleed, biliary pathology, as well as others were entertained. This patient was evaluated and appeared to be in no significant distress. IV access was obtained and laboratory work was drawn. Patient was hydrated with normal saline solution. Patient was given IV Zofran and Toradol. Laboratory work reveals no evidence of acute abnormalities. Urinalysis reveals evidence of blood and contaminated with epithelial cells. This will be sent for culture. Patient was feeling much improved and had no further vomiting. She was discharged with a prescription for Phenergan suppositories. She will follow -up with her physician and gastroenterology as soon as possible. She will return to the ER for worsening of symptoms or any medical concerns. Impression Primary Impression: Nausea vomiting and diarrhea Scribe Attestation The scribe's documentation has been prepared under my direction and personally reviewed by me in its entirety. I confirm that the note above accurately reflects all work, treatment, procedures, and medical decision making performed by me. Departure Information Dispostion Home / Self-Care Prescriptions Promethazine (Phenergan Suppository) 25 Mg Supp 25 MG UT Q6H Y for Nausea, #10 SUPP Prov: Viry Plaza M.D. 10/06/16 Referrals No Doctor, Assigned (PCP) Forms Call Back Authorization, HOME CARE DOCUMENTATION FORM, IMPORTANT VISIT INFORMATION Patient Instructions My [facility] Additional Instructions Diagnosis: Nausea, vomiting and diarrhea Phenergan 25 mg suppositories every 6 hours as needed for nausea. Drink plenty of clear fluids. Follow-up with Dr. Cody and gastroenterology this week for reevaluation. Return to the ER for worsening of symptoms or any medical concerns.
[2016-10-06 09:06] LABS: COMPLETE YES; EOS % 0.3 %; HEMATOCRIT 37.2 % (37-47); IG% 0.1 %; LYMPH ABS # 0.44 K/uL (1.2-3.4); MEAN CELL VOLUME 82.3 fL (80-100); MEAN CORPUSCULAR HGB CONC 32.8 g/dl (32-36); MEAN PLATELET VOLUME 9.2 fL (7.4-10.4); MONO % 2.7 %; NEUT % 90.9 %; PLATELET COUNT 330 K/uL (130-400); RED BLOOD COUNT 4.52 M/uL (4.2-5.4); WHITE BLOOD COUNT 7.35 K/uL (4.8-10.8)
[2016-10-06 09:16] LABS: ALT/SGPT 13 U/L (12-78); AST/SGOT 8 U/L (15-37); BLOOD UREA NITROGEN 15 mg/dl (7-18); BUN/CREATININE RATIO 19.9 (10-20); CALCIUM 8.4 mg/dl (8.5-10.1); CARBON DIOXIDE 21 mmol/L (21-32); CHLORIDE 110 mmol/L (98-107); CREATININE 0.76 mg/dl (0.60-1.20); GLUCOSE 123 mg/dl (70-99); MAGNESIUM 2.1 mg/dl (1.8-2.4); POTASSIUM 3.5 mmol/L (3.5-5.1); SODIUM 139 mmol/L (136-145)
[2016-10-06 09:19] LABS: ALKALINE PHOSPHATASE 73 U/L (45-117)
[2016-10-06 10:11] LABS: URINE APPEARANCE CLEAR (CLEAR); URINE BILIRUBIN NEG (NEG); URINE COLOR DK YELLOW; URINE EPITHELIAL CELL AUTO >30 /lpf (0-5); URINE NITRITE NEG (NEG); URINE SPECIFIC GRAVITY 1.028 (1.000-1.030); UROBILINOGEN NEG (NEG); ZZUR CULT IF INDIC CLEAN CATCH YES
--- NOTE | 2016-10-06 10:11 | DIAGNOSTIC IMAGING REPORT ---
CHEST AND ABDOMEN 2 VIEWS HISTORY: vomiting, diarrhea, recurrent COMPARISON: Chest 08/11/2016. FINDINGS: The lungs are clear. The cardiomediastinal silhouette is within normal limits. There is no pneumoperitoneum or pneumatosis. The bowel gas pattern is unremarkable. No evidence for bowel obstruction. There are 2 large left renal calculi. Dominant stone within the upper pole demonstrates a staghorn configuration and measures 3.5 cm. Fluid levels within the colon. IMPRESSION: 1. No acute process within the chest. 2. Left-sided nephrolithiasis. 3. Fluid levels within the colon. This could represent a gastroenteritis. No evidence for bowel obstruction. Electronically signed by: Duke Jacques M.D. 10/06/2016 10:10 AM Dictated Date/Time: 10/06/2016 10:07 AM
[2016-10-06 10:16] LABS: MANUAL MICROSCOPIC REQUIRED? NO; REVIEW REQ? NO
[2016-10-06] MEDS ORDERED: PROM25TA9 PO (12:04)
[2016-10-06 12:45] VITALS: BP 105/67; PULSE 96; TEMP 37.1; O2SAT 97
[2016-10-06] MEDS ORDERED: PROM1SUP19 PR (12:51)
== END 2016-10-06 12:45 | disposition home or self-care (01) ==
LOC: C.EDB 08:26
DX: R11.10 Vomiting, unspecified (principal); R19.7 Diarrhea, unspecified; E11.9 Type 2 diabetes mellitus without complications; J45.909 Unspecified asthma, uncomplicated; F32.9 Major depressive disorder, single episode, unspecified; K21.9 Gastro-esophageal reflux disease without esophagitis; G89.29 Other chronic pain; F17.200 Nicotine dependence, unspecified, uncomplicated; Z79.899 Other long term (current) drug therapy; Z98.890 Other specified postprocedural states; Z88.1 Allergy status to other antibiotic agents; Z88.8 Allergy status to other drugs, medicaments and biological substances; Z83.3 Family history of diabetes mellitus; Z83.79 Family history of other diseases of the digestive system; Z82.49 Family history of ischemic heart disease and other diseases of the circulatory system

== ENCOUNTER 2018-10-05 10:05 | Observation (INO) ==
--- NOTE | 2018-09-26 15:41 | PAT Medication Instructions ---
Medication Instructions Date of Service September 26, 2018 Home Medications cholecalciferol (vitamin D3) 5,000 unit PO QAM citalopram 40 mg PO QAM dicyclomine 10 mg PO QID multivitamin 1 cap PO QAM omeprazole 40 mg PO BID PRN ondansetron 4 mg PO Q6 PRN tizanidine 4 mg PO TID PRN DO NOT take the morning of surgery cholecalciferol (vitamin D3) 5,000 unit PO QAM dicyclomine 10 mg PO QID multivitamin 1 cap PO QAM tizanidine 4 mg PO TID PRN Take morning of surgery With a small sip of water, OTHERWISE NOTHING TO EAT OR DRINK AFTER MIDNIGHT: citalopram 40 mg PO QAM omeprazole 40 mg PO BID PRN (if needed) ondansetron 4 mg PO Q6 PRN (if needed) Take evening before surgery dicyclomine 10 mg PO QID omeprazole 40 mg PO BID PRN (if needed) tizanidine 4 mg PO TID PRN (if needed) Other Notes If you have any questions please call us at [phone] or [phone] or [phone] or [phone]
--- NOTE | 2018-09-27 14:02 | Anesthesiology Consultation ---
Date of Service September 27, 2018 Assessment & Plan (1) Encounter for pre-operative examination: Chart Review Chart Review: Acceptable Risk for Surgery and Patient seen in Pre Admission Testing Consults Requested none Teaching & Discussion Pre-Anesthesia Teaching/Discussion Notes: Instructed NPO after midnight before surgery, except medications with 15 cc of water. Medication instructions provided according to the PAT guidelines. History Surgery Operation Date: 10/05/18 08:50 Proposed Procedures p Total Laparoscopic Hysterectomy, Bilateral Salpingectomy and Cystoscopy - Jagruti Loya Height/Weight Height: 5 ft 8 in Weight: 96 kg Allergies Allergy/AdvReac Type Severity Reaction Status Date / Time amoxicillin Allergy Unknown Rash Verified 09/21/18 13:25 clavulanic acid Allergy Unknown Rash Verified 09/21/18 13:25 Medications Home Medications Medication Instructions Recorded Confirmed Last Taken cholecalciferol (vitamin D3) 5,000 unit PO QAM 09/21/18 09/21/18 Unknown [Vitamin D3] citalopram 40 mg PO QAM 09/21/18 09/21/18 Unknown dicyclomine 10 mg PO QID 09/21/18 09/21/18 Unknown multivitamin 1 cap PO QAM 09/21/18 09/21/18 Unknown omeprazole 40 mg PO BID PRN 09/21/18 09/21/18 Unknown ondansetron 4 mg PO Q6 PRN 09/21/18 09/21/18 Unknown tizanidine 4 mg PO TID PRN 09/21/18 09/21/18 Unknown Past Medical History Medical History Asthma HX OF CHILDHOOD ASTHMA, PT STATES HER ASTHMA HAD RESOLVED BUT SHE HAD HER FIRST ASTHMA ATTACK 1 YEAR AGO AN ADULT. SEASONAL RELATED. ALBUTEROL INHALER PRN. Romero-Danlos syndrome Classic Fibromyalgia GERD (gastroesophageal reflux disease) History of molar PARTIAL MOLAR History of tooth extraction Exercise / Class Metabolic Activity II 4-5 Yardwork/Stairs/Walk up hill (Walks several times per week. Able to climb FOS. Denies CP or SOB. ) Past Surgical History Surgical History History of adenoidectomy History of section History of cholecystectomy History of colonoscopy History of dilation and curettage History of esophagogastroduodenoscopy (EGD) History of tonsillectomy Past Anesthesia History No Hx of Anesthesia Complications and No Family Hx of Anesthesia Complications History of PONV No Hx of Motion Sickness and History of PONV Social History Smoking Status: Current every day smoker tobacco type: cigarettes Smoking cigarettes per day: HX OF 1/2 PPD X20. Do You Dip or Chew Tobacco: No Hx Alcohol Use: No Alcohol Intake Frequency Comment: 0 Hx Substance Use: No substance use type: does not use Review of Systems Patient denies chest pain, shortness of breath, dyspnea on exertion, cough, wheezing, palpitations. +Joint Pain (SI Joints, Hips, Elbows, Wrists, Knees, etc) +Acid Reflux (Controlled with medications) Physical Exam Vital Signs BP: 104/72 P: 91 R: 16 T: 98.6 SPO2: 97% on RA ENMT Thyromental Distance: < 3.5 Finger Breadths (3) Mallampati Class: I Neck normal visual inspection and trachea midline; neck extension not limited Respiratory normal respiratory effort Auscultation: lungs clear to auscultation bilaterally Cardiovascular Rate/Rhythm: regular rate and regular rhythm Heart Sounds: no murmur Neurologic moves all extremities Psychiatric Orientation: alert and oriented x 3 Testing Electrocardiogram Date: 10/15/17 Findings: + NSR @ (78) Normal sinus rhythm with sinus arrhythmia Possible left atrial enlargement Borderline ECG Chest X-Ray Date: 10/15/17 Findings: + NAD FINDINGS: The lungs are clear. Cardiac silhouette is normal in size. No pleural effusions. No pneumothorax. IMPRESSION: No acute process. Laboratory Results 09/27/18 14:23 Blood Type A Positive 09/27/18 14:23 Antibody Screen NEGATIVE 09/27/18 14:23
[2018-09-27 14:32] LABS: Basophils # (auto) 0.03 K/uL (0-0.2); Basophils % (auto) 0.5 %; Eosinophils # (auto) 0.11 K/uL (0-0.5); Eosinophils % (auto) 1.7 %; Hematocrit (blood only) 35.9 % (37-47); Immature Granulocytes # (auto) 0.01 K/uL (0.00-0.02); Immature Granulocytes % (auto) 0.2 %; Lymphocytes # (auto) 2.45 K/uL (1.2-3.4); Lymphocytes % (auto) 37.2 %; Mean Corpuscular Hgb Conc 33.4 g/dL (32-36); Mean Corpuscular Volume 78.4 fL (80-100); Monocytes % (auto) 9.1 %; Neutrophils # (auto) 3.39 K/uL (1.4-6.5); Neutrophils % (auto) 51.3 %; Platelet Count 371 K/uL (130-400); RDW Coefficient of Variation 16.7 % (11.5-14.5); RDW Standard Deviation 47.8 fL (36.4-46.3); Red Blood Count 4.58 M/uL (4.2-5.4); White Blood Count 6.59 K/uL (4.8-10.8)
[~2018-10-05 10:05] MED LIST changes: -BNT10 PO; -CHOL1TAB46 PO; -CITA40TA4 PO; +CLINDAMYCIN 600 MG/54 ML BAG IV SCH; +GENTAMICIN SULFATE 140 MG in DEXTROSE 5% 100 ML IV SCH; +LACTATED RINGER'S 1,000 ML IV SCH; +LR 15ML/HR IV SCH; -MULT-240 PO; -TIZA4CAP PO
--- NOTE | 2018-10-05 11:07 | History & Physical Bridge Note ---
Date of Service October 05, 2018 History & Physical Bridge Note I have examined the patient, reviewed the History & Physical and in the interval since the performance of the History & Physical I have noted the following changes of clinical significance: no changes noted
[2018-10-05] MEDS ORDERED: BUPIVACAINE 0.5 % 5 MG/1 ML MPF 30ML VIAL ONE (11:42)
[2018-10-05] MEDS ORDERED: TISSEEL FIBRIN SEALANT 10ML TOP ONE (12:12)
[2018-10-05] MEDS ORDERED: GLYCOPYRROLATE 0.2 MG/ML VIAL ONE (12:22)
[2018-10-05] MEDS ORDERED: PROPOFOL IV EMULSION 10 MG/ML 20 ML VIAL IV ONE (12:22)
[2018-10-05] MEDS ORDERED: DEXAMETHASONE SOD INJ 4 MG/ML VIAL ONE (12:22)
[2018-10-05] MEDS ORDERED: ROCURONIUM BROMIDE 10 MG/ML 5 ML VIAL ONE (12:22)
[2018-10-05] MEDS ORDERED: LIDOCAINE HCL 2% 2 ML VIAL/AMP(20MG/ML) INFIL ONE (12:22)
[2018-10-05] MEDS ORDERED: ONDANSETRON INJ 2 MG/ML 2 ML VIAL ONE ×2 (12:22→14:01)
[2018-10-05] MEDS ORDERED: NEOSTIGMINE METHYLSULFATE 5 MG/5 ML SYR ONE (12:22)
[2018-10-05] MEDS ORDERED: MoRPHine SULFATE PF 1 MG/ML 10 ML AMP/VIAL ONE (12:58)
[2018-10-05] MEDS ORDERED: FLOSEAL HEMOSTATIC MATRIX 10ML TOP ONE (13:21)
--- NOTE | 2018-10-05 13:31 | Post Operative Brief Note ---
Immediate Post Op Note v1 Date of Surgery October 05, 2018 Pre & Post Diagnosis Operation Date: 10/05/18 11:40 Pre-Op Diagnosis: Menorrhagia with irregular cycles Post-Op Diagnosis: Menorrhagia with irregular cycles Procedure Operation Date: 10/05/18 11:40 Actual Procedures p Total Laparoscopic Hysterectomy, Bilateral Salpingectomy and Cystoscopy(Not Applicable) - Jagruti Loya Surgeon Jagruti Loya Cattle Trader Lea Alegre PA-C Estimated Blood Loss 25 Findings Consistent with Post-Op Diagnosis Drains Membreno Catheter
--- NOTE | 2018-10-05 13:41 | Operative Report ---
Post Operative Report Pre & Post Diagnosis Operation Date: 10/05/18 11:40 Pre-Op Diagnosis: Menorrhagia with irregular cycles Post-Op Diagnosis: Menorrhagia with irregular cycles Procedure Operation Date: 10/05/18 11:40 Actual Procedures p Total Laparoscopic Hysterectomy, Bilateral Salpingectomy and Cystoscopy(Not Applicable) - Jagruti Loya Surgeon Jagruti Loya [employer] Courtesy Clerk Lea Alegre PA-C Estimated Blood Loss 25 Findings See Below 1. 9 cm anteverted uterus 2. Normal appearing fallopian tubes bilaterally 3. Normal appearing ovaries bilaterally 4. [place]: within normal limits 5. Normal appearing liver edge 6. Appendix not visualized Cystoscopy 1. Normal bladder dome free of lesions or sutures 2. Brisk bilateral efflux of urine by ureteral orifices Fluids See Anesthesia Report Specimens Uterus, cervix, bilateral fallopian tubes Drains Tejada catheter removed prior to the end of the procedure Anesthesia Type General Complications none Disposition Disposition: Recovery Room Indications 42 yo with menorrhagia with irregular menstrual cycles desiring definitive surgical management. Description of Procedure Under GA in the dorsal lithotomy position, the patient was prepped and drapped in the usual sterile fashion. Beginning at the vagina, a tejada catheter was inserted under sterile conditions and left in situ for the remainder of the case. A weighted speculum was then placed in the vagina and with the help of a right angle retractor the cervix was visualized and grasped anteriorly with a single tooth tenaculum. The uterus was sounded to 9 cm with a uterine sound. A stay suture using 0 Vicryl on a UR6 was placed on the anterior lip of the cervix. The cervical os was dilated with Oglden dilators. An Vidderincimo.im uterine manipulator with a metal cup was inserted. The weighted speculum was then removed. Attention was then turned to the abdomen. 0.5% marcaine solution was used for infiltration of all port sites. Beginning in the subumbilical area, the skin was first infiltrated with ~ 2 cc of the marcaine solution, then a 5 mm incision was made through the skin with a #11 blade. Direct entry with a 5 mm trocar, sleeve, and laparoscope was made into the peritoneal cavity. The opening pressure was < 8 mmHg. The peritoneal cavity was insufflated with CO2 gas to a maximum pressure of 20 mmHg. Examination of the peritoneal cavity revealed no signs of injury from entry and normal anatomical structures. The patient was then placed in steep Trendelenburg and three more 5 mm trocars were placed, one on the right and two on the left, in the standard technique, taking care to avoid the epigastric vessels. All trocars were placed under direct visualization with no inadvertent damage to underlying structures. The uterus was upheld from below and revealed a normal uterus and normal tubes and ovaries. Beginning on the right side and working distally along the length of the fallopean tube, the mesosalpinx was exposed by lifting the tube up towards the anterior abdominal wall. The mesosalpinx was then sequentially, clamped, ligate d, and cut using the PALAK Harmonic working alongside the length of the tube and towards the cornua. Once the level of the cornua was reached the tube was ligated and cut. Attention was then turned to the other side. The same process was repeated on the left, sequentially clamping, ligating, and cutting the mesosalpinx being sure to not injure the adjacent ovarian tissue or other surrounding structures. The round ligament was then ligated and cut. Following this, the anterior leaf of the broad ligament was then taken down on the right side, dissecting down towards the peritoneal reflection at the base of the bladder and adjacent to the cervix. The same process was then repeated on the left side such that both sides met and the anterior leaflet had been appropriately skeletonized. Once the bladder was appropriately dissected free from the lower anterior uterine segment and the tissues skeletonized, the uterine arteries were bilaterally clamped and ligated. Pedicles were checked and hemostatic. At the level of the metal cup of the uterine manipulator, the vaginal vault was incised circumferentially with the PALAK Harmonic. The uterus, cervix, and bilateral fallopian tubes were delivered through the vagina and sent to pathology. A vaginal occluder was then placed into the vagina to form a pneumatic seal and all the pedicles as well as the cuff edges were examined. The vaginal vault was then closed with a V-Loc barbed stitch being sure to avoid the bladder lateral pedicles. Following vault closure, an inspection of all areas was made to ensure hemostasis. Tiseal and Floseal was applied along the vaginal cuff and adnexal regions. Hemostasis was visualized. All ports were removed under direct visualization and hemostasis noted. All the incision sites were then closed with 4-0 monocryl sutures in a subcuticular fashion and dermabond. The tejada catheter and vaginal occluder were removed. Cystoscopy was performed. Normal appearing bladder, free of lesions and sutures. Brisk bilateral efflux of urine by ureteral orifices was visualized. The cystoscope was removed without incident. At the end of the procedure, all sponges, instruments, and sharps were counted and correct. Estimated blood loss was 25 ml. The patient was taken to recovery in stable condition. I attest to the content of the Intraoperative Record and any orders documented therein. Any exceptions are noted below.
[2018-10-05] MEDS ORDERED: ONDANSETRON INJ 2 MG/ML 2 ML VIAL IV PRN ×2 (13:49→15:28)
[2018-10-05] MEDS ORDERED: ATROPINE SULFATE 0.1 MG/ML 10ML SYR IV PRN (13:49)
[2018-10-05] MEDS ORDERED: ePHEDrine sulfate 50 MG/ML AMP IV PRN (13:49)
[2018-10-05] MEDS ORDERED: PROMETHAZINE HCL 6.25 MG in SODIUM CHLORIDE 0.9% 50 ML IV PRN (13:49)
[2018-10-05] MEDS ORDERED: HYDROmorphone INJ 2 MG/ML SYR/VIAL IV PRN (13:49)
[2018-10-05] MEDS ORDERED: fentaNYL citrate 100 MCG/2 ML VIAL ONE (14:04)
[2018-10-05] MEDS: fentaNYL citrate 100 MCG/2 ML VIAL IV PRN ×2 (14:05→14:10)
--- NOTE | 2018-10-05 14:29 | Anesthesiology Progress Note ---
Date of Service October 05, 2018 Anesthesia Post Procedure Vital Signs Vital Signs: Temp Pulse Pulse Resp BP Pulse Ox 10/05/18 14:20 82 16 123/88 99 10/05/18 14:10 82 16 123/88 99 10/05/18 14:00 75 16 131/91 93 10/05/18 13:50 84 16 144/85 H 100 10/05/18 13:43 36.4 C L 97 H 16 141/90 H 99 10/05/18 10:23 37.4 C 81 16 121/83 95 Pain Intensity Abdomen: Pain Intensity: 2 Transfer of Care Handoff Completed per policy Notes Mental Status: alert / awake / arousable Patient Amnestic to Procedure: Yes Nausea / Vomiting: adequately controlled Pain: adequately controlled Airway Patency, RR, SpO2: stable & adequate BP & HR: stable & adequate Hydration State: stable & adequate Anesthetic Complications: no major complications apparent
[2018-10-05] MEDS ORDERED: TIZANIDINE HCL 4 MG TABLET PO PRN (15:28)
[2018-10-05] MEDS ORDERED: PANTOprazole 40 MG TAB PO PRN (15:28)
[2018-10-05] MEDS ORDERED: ONDANSETRON 4 MG OD TAB PO PRN (15:28)
[2018-10-05] MEDS: OXYCODONE/ACETAMINOPHEN 5mg/325mg TAB PO PRN ×2 (16:19→21:43)
[2018-10-05] MEDS: DICYCLOMINE HCL 10 MG CAP PO SCH ×2 (16:55→20:40)
[2018-10-05] MEDS: SIMETHICONE 80 MG CHEW PO SCH ×2 (18:10→23:53)
[2018-10-05] MEDS: IBUPROFEN 600 MG TAB PO SCH ×2 (18:10→23:53)
[2018-10-05] MEDS: ACETAMINOPHEN 325 MG TAB PO SCH ×2 (18:10→23:54)
[2018-10-05] MEDS: DOCUSATE SODIUM 100 MG CAP PO SCH (20:40)
[2018-10-06] MEDS: OXYCODONE/ACETAMINOPHEN 5mg/325mg TAB PO PRN ×2 (03:42→08:33)
[2018-10-06] MEDS: SIMETHICONE 80 MG CHEW PO SCH (06:00)
[2018-10-06] MEDS: IBUPROFEN 600 MG TAB PO SCH (06:00)
[2018-10-06] MEDS: ACETAMINOPHEN 325 MG TAB PO SCH (06:01)
--- NOTE | 2018-10-06 07:45 | Gynecologic Progress Note ---
Date of Service October 06, 2018 Assessment & Plan (1) S/P hysterectomy: Patient meeting all discharge criterial. Discharge home with medications and instructions. Subjective POD#1. s/p TLH/BS/Cystoscopy. Pt without complaints. Pain controlled with oral medication. Tolerating regular diet. +flatus. Denies urinary symptoms. Review of Systems Review of Systems: All systems reviewed & are unremarkable except as noted in HPI & below Physical Exam Constitutional: WD/WN, vitals as above Respiratory: normal respiratory effort, lungs clear to auscultation Cardiovascular: RRR, no murmur, no edema Gastrointestinal (Abdomen): Inspection/Auscultation: abdomen normal to inspection Incisions: C/D/I. No erythema or edema Results & Data Vital Signs (Past 12 Hours) Vital Signs Temp Pulse Resp BP Pulse Ox 10/06/18 03:40 36.5 C 62 18 124/74 10/05/18 23:50 37.1 C 83 18 109/63 10/05/18 20:00 37.4 C 88 18 120/76 93
--- NOTE | 2018-10-06 07:49 | Discharge Summary ---
Date of Service October 06, 2018 Admission HPI Per Admitting Provider 42 yo with abnormal uterine bleeding and heavy menstrual bleeding. Menses every 14-28 days, lasting 3-7 days with 5 days of heavy menstrual bleeding. Patient uses pads and tampons and chaging every hour. She endorses clots and dysmenorrhea. Patient not currently sexually active due to bleeding. Denies abnormal vaginal discharge. Denies dyspareunia. Denies urinary or bowel symptoms. Recent TVUS revealed a mildly enlarged uterus 10.1 cm, a 1 cm endometrial lesion (polyp vs fibroid) and normal appearing ovaries. 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 Last pap smear in Jul 2018L NILM/-HPV. Admission Exam (Per Admitting) Constitutional WD/WN, vitals as above Respiratory normal respiratory effort, lungs clear to auscultation Cardiovascular RRR, no murmur, no edema Gastrointestinal (Abdomen) Inspection/Auscultation: abdomen normal to inspection Discharge Data Procedures Performed Operation Date: 10/05/18 11:40 Actual Procedures p Total Laparoscopic Hysterectomy, Bilateral Salpingectomy and (Not Applicable) - Jagruti Lissy MendietaVincenzo s Cystoscopy(Not Applicable) - [facility] (1) S/P hysterectomy: POD#1. s/p TLH/BS/Cysotoscopy. Patient meeting all discharge criteria. Discharge home with medications and instructions. Discharge Instructions POST OPERATIVE: BOWEL FUNCTION/MEDICATIONS: 1. Constipation pain and discomfort are the most common complaints 5-7 days after surgery. Points 2-6 address the things that can help. 2. Chewing gum can help stimulate the gut and help improve digestion and motility. 3. Milk of Magnesia 1-2 times per day until return of bowel function. 4. Colace is a stool softener that helps. Taking this 2-3 times per day until bowel function returns to normal is highly recommended. 5. Dulcolax is a laxative that may be used if several days have passed without a bowel movement. Alternatively Miralax may be used daily instead. 6. Drink plenty of fluids as this will also reduce constipation. 7. Narcotic pain medications will be prescribed by your physician. They are safe to use and we encourage you to use them. If you are not allergic, ibuprofen will also be prescribed. Many patients will be able to transition off of the narcotic medications to ibuprofen by postoperative day 3. ACTIVITY RECOMMENDATIONS: 1. Get plenty of rest and listen to your body. If you are tired, take a nap. 2. You may shower, but do not take a tub bath until you see your doctor at the 2 week post operative visit. 3. Absolutely NO intercourse and nothing in the vagina until you are examined by your doctor at the 6 week visit. At that visit it will be determined when such activities can be resumed. This can range from 6-12 weeks after your surgery depending on healing time. 4. The main physical activity in the first week should be walking. By the second week you can slowly increase activity. There are no limits on walking up and down stairs. 5. Do not lift more than 5-10 lbs for 4 weeks. Remember the "one-handed rule", i.e. if you can lift something with only one hand it's likely okay. 6. 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 "Overdoing it" can lead to incisions not healing, pain and vaginal bleeding, so again, listen to your body. 7. Driving can be resumed when you feel able. Do not drive within 24 hours of taking a narcotic medication. EXPECTATIONS: 1. Vaginal spotting, bleeding and discharge are common after surgery. There may even be an odor to the discharge which is often related to sutures used in the vagina. If you experience heavy vaginal bleeding, call the office number day or night [phone] 2. Bladder discomfort is common after surgery from the catheter. This usually resolves in 1-2 weeks. 3. By the end of the 3rd or 4th week you should be feeling much better. It may take up to 6 weeks for your energy levels to return to normal. 4. Narcotic medications have side effects such as: dizziness, headache, nausea and/or vomiting. If you suspect your pain medication is causing problems, call our office and we may be able to prescribe an alternate medication. 5. The skin incisions are often covered with a liquid bandage. This will gradually peel off over time. CALL THE OFFICE IF YOU HAVE ANY OF THE FOLLOWIN. Temperature of 101 degrees or higher. 2. Severe abdominal or pelvic pain not relieved by pain medication. 3. Persistent nausea or vomiting. 4. Increased pain with urination or difficulty urinating. 5. Bright red bleeding that soaks more than 1 pad per hour. CONTACT PHONE NUMBERS: Main Office: [phone] Avoid all tobacco products. If you need help to stop smoking, call [place] FREE QUITLINE at . This is a free call.
[2018-10-06] MEDS: DOCUSATE SODIUM 100 MG CAP PO SCH (08:32)
[2018-10-06] MEDS: DICYCLOMINE HCL 10 MG CAP PO SCH (08:33)
[2018-10-06] MEDS ORDERED: CITALOPRAM 40 MG TAB PO SCH (09:00)
[2018-10-06] MEDS ORDERED: CHOLECALCIFEROL 1,000 UNITS TAB PO SCH (09:00)
[2018-10-06] MEDS ORDERED: MULTIVITAMIN TAB PO SCH (09:00)
[2018-10-06] MEDS ORDERED: fentaNYL citrate 100 MCG/2 ML VIAL IV ONE (09:14)
== END 2018-10-06 09:15 | disposition home or self-care (01) ==
LOC: 4N 10:05 → ASU 10:05

== ENCOUNTER 2024-11-19 03:26 | Inpatient (IN) ==
[2024-11-19] MEDS: SODIUM CHLORIDE 0.9% 1,000 ML IV ONE (04:17)
[2024-11-19] MEDS: MoRPHine SULFATE 4 MG/ML 1 ML CARP\\VIAL IV PRN (04:17)
[2024-11-19] MEDS: ONDANSETRON INJ 2 MG/ML 2 ML VIAL IV STA (04:17)
[2024-11-19] MEDS: ACETAMINOPHEN 1,000 MG/100 ML VIAL IV STA (04:17)
[2024-11-19 04:26] LABS: Hematocrit (blood only) 40.3 % (37.0-47.0); Hemoglobin 14.0 g/dl (12.0-16.0); Immature Granulocytes # (auto) 0.03 K/uL (0.01-0.20); Immature Granulocytes % (auto) 0.3 %; Mean Corpuscular Hemoglobin 30.5 pg (25.0-34.0); Mean Corpuscular Volume 87.8 fL (80.0-100.0); Platelet Count 291 K/uL (130-400); RDW Standard Deviation 44.0 fL (36.4-46.3); Red Blood Count 4.59 M/uL (4.20-5.40); White Blood Count 10.28 K/ul (4.8-10.8)
[2024-11-19 04:42] LABS: Alanine Aminotransferase 7.0 U/L (7-52); Albumin Globulin Ratio 1.2 (0.9-2); Alkaline Phosphatase 83.0 U/L (34-104); Anion Gap 11.0 (3-11); Bilirubin,Total 1.1 mg/dl (0.2-1.0); Blood Urea Nitrogen 13.0 mg/dl (6-23); Calcium 9.0 mg/dl (8.6-10.3); Carbon Dioxide 19.0 mmol/L (21-32); Chloride 106.0 mmol/L (98-107); Creatinine Clr Calc Pharmacy 68.5 ml/min; Globulin 3.3 gm/dl (2.5-4.0); Glucose 131.0 mg/dl (70-99(Fasting)); Lipase 13.0 U/L (11-82); Potassium 3.5 mmol/L (3.5-5.1); Sodium 136.0 mmol/L (136-145); Total Protein 7.4 gm/dl (6.0-8.3)
[2024-11-19] MEDS: OPTIRAY 320 100ml IV ONE (05:09)
--- NOTE | 2024-11-19 05:54 | CT Scan Report ---
EXAM: CT abd pelvis IV con only CLINICAL HISTORY: rlq abd pain. No gallbladder/uterus TECHNIQUE: Contiguous axial images were obtained from the level of the diaphragm to the pubic symphysis with intravenous contrast. Coronal and sagittal reconstructions were likewise performed and indicated to increase the sensitivity for detecting clinically relevant pathology. If IV contrast material had not been administered, the likelihood of detecting abnormalities relevant to the patient's condition would have been substantially decreased. CT scan was performed according to ALARA (as low as reasonable achievable). COMPARISON: 17:05:44 FORM SETTER FINDINGS: The visualized lung bases are clear. The liver is normal in size and attenuation. No focal liver lesions are seen. There is no intra or extrahepatic biliary ductal dilatation. Hepatic vasculature is patent. The gallbladder is surgically removed. The spleen, pancreas, and right adrenal gland are unremarkable. 14 mm nodule seen in left adrenal gland. The kidneys are normal in size and attenuation. Right kidney shows non-obstructing calculus of size 3 mm in lower calyx. Right sided moderate hydronephrosis due to an obstructing calculus of size 6 mm involving right pelviureteric junction - HU around 1300. Focal cortical scarring is noted involving interpolar region of left kidney. About 29 x 18 mm size cyst with patchy wall calcification is noted involving left interpolar region- complex cyst Bosniak type II. The bladder is normal in contour. Pelvic viscera are unremarkable. No focal or diffuse bowel wall thickening or evidence of bowel obstruction is identified. The appendix is visualized in the right lower quadrant and appears within normal limits. Abdominal and pelvic vasculature is patent. No adenopathy or fluid collections are seen. No aggressive appearing osseous lesions are identified. Hysterectomy status. About 29 x 23 mm sized unilocular cyst is noted involving left ovary. IMPRESSION: 1. Right kidney shows non-obstructing calculus of size 3 mm in lower calyx.-stable. 2. Right sided moderate hydronephrosis due to an obstructing calculus of size 6 mm involving right pelviureteric junction - HU around 1300.-new finding. 3. Focal cortical scarring is noted involving interpolar region of left kidney. About 29 x 18 mm size cyst with patchy wall calcification is noted involving left interpolar region- complex cyst Bosniak type II-stable. 4. 14 mm nodule seen in left adrenal gland. 5. Left ovarian cyst as described - USG correlation suggested-new finding. Electronically signed by Louie Thakkar 11-19-2024 05:53 AM
--- NOTE | 2024-11-19 06:14 | Emergency Department Note ---
History of Present Illness General Chief complaint: Flank Pain Stated complaint: R SIDE PAIN, VOMITING Time Seen by Provider: 11/19/24 03:44 History of Present Illness Maximum Pain Intensity: 7 This is a 49-year-old female presenting to the emergency department for evaluation of right-sided abdominal pain. Patient symptoms began over the past 1 to 2 days. She does have a history of kidney stones, however her pain does not seem distinctly like previous kidney stones. She knows that she has a right sided stone, and gets annual CT scans through [facility]. Her last CT scan was only a few days ago, and the CT report is not available at this time. The patient has not had fevers or chills. She is nauseated without vomiting. She does have Zofran which is helping some of the nausea. Her pain is quite anterior and not in her back or flank. No difficulty going to the bathroom. She has a past surgical history including cholecystectomy and hysterectomy. She does have her ovaries. Discomfort is a persistent, nonradiating, 11/28. Home Medications Medication Instructions Recorded Confirmed Type cholecalciferol (vitamin D3) 125 5,000 unit PO QAM 09/21/18 11/19/24 History mcg (5,000 unit) tablet (Vitamin D3) ondansetron 4 mg disintegrating 4 mg PO Q6 PRN Nausea 09/21/18 11/19/24 History tablet tizanidine 4 mg capsule 4 mg PO Q8H PRN muscle spasms 09/21/18 11/19/24 History docusate sodium 100 mg capsule 200 mg PO DAILY 09/14/20 11/19/24 History (Colace) multivitamin 1 tab PO DAILY 09/14/20 11/19/24 History tamsulosin 0.4 mg capsule 0.4 mg PO QAM 09/14/20 11/19/24 History albuterol sulfate 90 mcg/actuation 2 puff inhalation DIRECTED PRN 09/15/21 11/19/24 History aerosol inhaler Shortness Of Breath acetaminophen 325 mg capsule 650 mg PO Q6H PRN Pain 10/04/22 11/19/24 History cyanocobalamin (vitamin B-12) 1,000 mcg PO DAILY 10/04/22 11/19/24 History 1,000 mcg tablet famotidine 20 mg tablet 20 mg PO BID PRN Acid Reflux 10/04/22 11/19/24 History hydroxyzine HCl 10 mg tablet 10 mg PO Q6 PRN Anxiety 10/04/22 11/19/24 History ibuprofen 800 mg tablet 800 mg PO TID PRN Pain 10/04/22 11/19/24 History triamcinolone acetonide 0.5 % 1 applic topical HS 10/04/22 11/19/24 History topical cream zinc 25 mg tablet 25 mg PO DAILY 10/04/22 11/19/24 History allopurinol 300 mg tablet 300 mg PO DAILY 11/19/24 11/19/24 History polyethylene glycol 3350 17 gram 17 g PO DAILY PRN Constipation 11/19/24 11/19/24 History oral powder packet Allergies Allergy/AdvReac Type Severity Reaction Status Date / Time amoxicillin Allergy Intermediate Rash Verified 11/19/24 13:33 clavulanic acid Allergy Intermediate Rash Verified 11/19/24 13:33 Past Med/Surg History Problem List (Updated 11/19/24 @ 13:35 by Muriel Gurrola PA-C) Flank Pain (Acute) Hydronephrosis (Acute) Calculus of proximal right ureter (Acute) S/P hysterectomy Medical History (Updated 11/19/24 @ 22:01 by Dionisio Gonzalez PA-C) Romero-Danlos syndrome Fibromyalgia Tobacco use disorder History of molar PARTIAL MOLAR GERD (gastroesophageal reflux disease) Romero-Danlos syndrome Classic Fibromyalgia Asthma HX OF CHILDHOOD ASTHMA, PT STATES HER ASTHMA HAD RESOLVED BUT SHE HAD HER FIRST ASTHMA ATTACK 1 YEAR AGO AN ADULT. SEASONAL RELATED. ALBUTEROL INHALER PRN. Surgical History (Updated 11/19/24 @ 13:35 by Muriel Gurrola PA-C) H/O dilation and curettage S/P section S/P tonsillectomy and adenoidectomy History of dilation and curettage History of tooth extraction History of tonsillectomy History of adenoidectomy History of esophagogastroduodenoscopy (EGD) History of cholecystectomy History of colonoscopy History of section Social History Smoking Status: Current every day smoker Tobacco Type: Cigarettes Cigarettes Per Day: HX OF 1/2 PPD X20.; Second Hand Exposure: No; Do You Dip or Chew Tobacco: No; Tobacco Cessation Education Requested by Patient: No Hx Alcohol Use: Yes Alcohol type: wine Hx Substance Use: No Preferred Language: Ecuadorean Communication Ability: Effective Precision Lathe Operator Required: No Beliefs That Will Affect Care: None Current Living Situation: Spouse Other Information That Helps Us Care for You: No Feels Safe at Home: Yes Safety Concerns: Feels Safe At This Time Assistive Devices: Glasses Review of Systems A total of 10 systems reviewed and were otherwise negative Physical Exam Vital Signs Vital Signs - 24 hr 11/19/24 03:30 11/19/24 04:17 11/19/24 04:18 Temperature 37.2 C Temperature Source Temporal Artery Scan Pulse Rate 135 H 100 H 103 H Pulse Rate [Apical] Respiratory Rate 18 23 Respiratory Effort / Characteristics Non-Labored Spontaneous Respiratory Depth Normal Blood Pressure 150/83 H 141/86 H Blood Pressure [Left Arm] Blood Pressure Mean 105 104 Blood Pressure Mean [Left Arm] Pulse Oximetry 97 97 Oxygen Delivery Method Room Air Room Air Sepsis Recent Fever Within 48 Hours Yes Sepsis New/Unexplained Change in Mental Status No Sepsis Action Taken by Nursing No Action Required 11/19/24 04:30 11/19/24 05:33 11/19/24 06:00 Temperature Temperature Source Pulse Rate 92 H 93 H 95 H Pulse Rate [Apical] Respiratory Rate 16 14 16 Respiratory Effort / Characteristics Respiratory Depth Blood Pressure 126/95 133/83 125/75 Blood Pressure [Left Arm] Blood Pressure Mean 105 99 96 Blood Pressure Mean [Left Arm] Pulse Oximetry 97 96 96 Oxygen Delivery Method Room Air Room Air Room Air Sepsis Recent Fever Within 48 Hours Sepsis New/Unexplained Change in Mental Status Sepsis Action Taken by Nursing 11/19/24 06:30 11/19/24 07:22 11/19/24 07:30 Temperature Temperature Source Pulse Rate 97 H 92 H Pulse Rate [Apical] 94 H Respiratory Rate 20 22 17 Respiratory Effort / Characteristics Respiratory Depth Normal Blood Pressure 125/90 127/86 Blood Pressure [Left Arm] 131/85 Blood Pressure Mean 101 101 Blood Pressure Mean [Left Arm] 100 Pulse Oximetry 94 98 94 Oxygen Delivery Method Room Air Room Air Sepsis Recent Fever Within 48 Hours Sepsis New/Unexplained Change in Mental Status Sepsis Action Taken by Nursing VITALS: Vitals are noted on the nurse's note and reviewed by myself. Vital signs stable. GENERAL: Well-developed, well-nourished, white female, who is uncomfortable appearing but overall pleasant and cooperative. HEAD: Normocephalic atraumatic. NECK: Supple without nuchal rigidity. No lymphadenopathy. No thyromegaly. Cervical spine is nontender. HEART: Regular rate and rhythm without murmurs gallops or rubs. LUNGS: Clear to auscultation bilaterally without wheezes, rales or rhonchi. No retractions or accessory muscle use. ABDOMEN: Positive normal bowel sounds x 4. Soft, nontender, without masses or organomegaly. No guarding or rebound tenderness. No CVA tenderness. MUSCULOSKELETAL: No muscle atrophy, erythema, or edema noted. Full range of motion in all extremities. NEURO: Patient was alert and oriented to person place and time. CN II through XII grossly intact. SKIN: The skin was without rashes, erythema, edema, or bruising. Capillary refill less than 2 seconds. Course Administered Medications Hydromorphone HCl (Hydromorphone Inj 0.5 Mg/0.5 Ml Syr) 0.5 mg IV Q4H PRN PRN Reason: Severe Pain (Scale 7, 8, 9,10) Stop: 12/03/24 12:29 Last Admin: 11/19/24 16:42 Dose: 0.5 mg Documented By: Admin: 11/19/24 12:10 Dose: 0.5 mg Documented By: OTILIO Sodium Chloride (Nss) 1,000 mls @ 100 mls/hr IV .Q10H [facility] Stop: 11/22/24 09:44 Last Infusion: 11/19/24 17:25 Dose: 100 mls/hr Documented By: Admin: 11/19/24 16:48 Dose: 125 mls/hr Documented By: Infusion: 11/19/24 16:43 Dose: Infused Documented By: Admin: 11/19/24 09:43 Dose: 125 mls/hr Documented By: ROCCO Acetaminophen (Ofirmev) 1,000 mg in 100 mls @ 400 mls/hr IV Q8H [facility] Stop: 11/22/24 09:44 Last Infusion: 11/19/24 17:20 Dose: Infused Documented By: Admin: 11/19/24 17:09 Dose: 400 mls/hr Documented By: Infusion: 11/19/24 10:16 Dose: Infused Documented By: Admin: 11/19/24 09:52 Dose: 400 mls/hr Documented By: ROCCO Ceftriaxone Sodium (Rocephin) 2,000 mg in 50 mls @ 100 mls/hr IV Q24H [facility] Stop: 11/29/24 11:59 Last Infusion: 11/19/24 12:45 Dose: Infused Documented By: Admin: 11/19/24 12:14 Dose: 100 mls/hr Documented By: OTILIO Ketorolac Tromethamine (Ketorolac Tromethamine 15 Mg/Ml Vial) 15 mg IV Q6H PRN PRN Reason: Moderate Pain (Scale 4, 5, 6) Stop: 11/24/24 11:51 Last Admin: 11/19/24 20:01 Dose: 15 mg Documented By: Admin: 11/19/24 12:45 Dose: 15 mg Documented By: OTILIO Nicotine (Nicotine 14 Mg/24 Hr Patch) 1 patch TD [facility] Stop: 12/19/24 13:59 Last Admin: 11/19/24 20:18 Dose: 1 patch Documented By: ARLETTE Ondansetron HCl (Ondansetron Inj 2 Mg/Ml 2 Ml Vial) 4 mg IV Q6H PRN PRN Reason: Nausea Stop: 12/19/24 11:05 Last Admin: 11/19/24 20:01 Dose: 4 mg Documented By: ARLETTE Oxycodone HCl (Oxycodone Hcl Ir 5 Mg Tab (Immediate Release)) 5 mg PO Q4H PRN PRN Reason: Mod-Sev Pain (Scale 4-10) Stop: 12/03/24 20:11 Last Admin: 11/19/24 20:17 Dose: 5 mg Documented By: ARLETTE Phenazopyridine HCl (Phenazopyridine Hcl 100 Mg Tab) 100 mg PO TID PRN PRN Reason: dysuria, bladder spasms Stop: 12/19/24 19:06 Last Admin: 11/19/24 20:18 Dose: 100 mg Documented By: ARLETTE Sucralfate (Sucralfate 1 Gm/10 Ml Udc) 1 gm PO QID [facility] Stop: 12/19/24 17:49 Last Admin: 11/19/24 18:10 Dose: 1 gm Documented By: BIB Tamsulosin HCl (Tamsulosin Hcl 0.4 Mg Cap) 0.4 mg PO [facility] Stop: 12/19/24 11:59 Last Admin: 11/19/24 12:13 Dose: 0.4 mg Documented By: OTILIO Triamcinolone Acetonide (Triamcinolone Acet 0.5% Cr 15 Gm Tube) 1 appln TOP HS [facility] Stop: 12/19/24 20:59 Last Admin: 11/19/24 20:40 Dose: Not Given Documented By: ALW Discontinued Medications Diatrizoate Meglumine (Diatrizoate Meglumine 30% 100ml Vial) 10 ml INSTIL ONCE ONE Stop: 11/19/24 14:46 Last Admin: 11/19/24 14:30 Dose: 10 ml Documented By: PUNEET Fentanyl Citrate (Fentanyl Citrate Pf 100 Mcg/2 Ml Vial) 25 mcg IV Q5M PRN PRN Reason: PACU Use Only-Pain Stop: 11/19/24 23:13 Last Admin: 11/19/24 15:30 Dose: 25 mcg Documented By: Admin: 11/19/24 15:25 Dose: 25 mcg Documented By: Admin: 11/19/24 15:20 Dose: 25 mcg Documented By: Admin: 11/19/24 15:15 Dose: 25 mcg Documented By: SED Fentanyl Citrate (Fentanyl Citrate Pf 100 Mcg/2 Ml Vial) Confirm Administered Dose 100 mcg .ROUTE .STK-MED ONE Stop: 11/19/24 15:17 Last Admin: 11/19/24 15:29 Dose: Not Given Documented By: MIREILLE Hydromorphone HCl (Hydromorphone Inj 0.5 Mg/0.5 Ml Syr) 0.5 mg IV NOW STA Stop: 11/19/24 07:15 Last Admin: 11/19/24 07:22 Dose: 0.5 mg Documented By: ROCCO Hydromorphone HCl (Hydromorphone Inj 0.5 Mg/0.5 Ml Syr) 0.5 mg IV NOW STA Stop: 11/19/24 09:25 Last Admin: 11/19/24 09:26 Dose: 0.5 mg Documented By: ROCCO Hydromorphone HCl (Hydromorphone Inj 0.5 Mg/0.5 Ml Syr) 0.5 mg IV NOW STA Stop: 11/19/24 18:05 Last Admin: 11/19/24 18:10 Dose: 0.5 mg Documented By: JAR Sodium Chloride (Nss) 1,000 mls @ 999 mls/hr IV .Q1H1M ONE Stop: 11/19/24 05:07 Last Infusion: 11/19/24 06:02 Dose: Infused Documented By: Admin: 11/19/24 04:17 Dose: 999 mls/hr Documented By: ERNESTO Acetaminophen (Ofirmev) 1,000 mg in 100 mls @ 400 mls/hr IV NOW STA Stop: 11/19/24 04:21 Last Infusion: 11/19/24 04:35 Dose: Infused Documented By: Admin: 11/19/24 04:17 Dose: 400 mls/hr Documented By: ERNESTO Ioversol (Optiray 320 100ml) 100 ml IV ONCE ONE Stop: 11/19/24 05:10 Last Admin: 11/19/24 05:09 Dose: 93 ml Documented By: TERRELL Morphine Sulfate (Morphine Sulfate 4 Mg/Ml 1 Ml Carp\Vial) 4 mg IV Q30M PRN PRN Reason: Pain Stop: 12/03/24 04:06 Last Admin: 11/19/24 08:17 Dose: 4 mg Documented By: Admin: 11/19/24 04:17 Dose: 4 mg Documented By: ERNESTO Ondansetron HCl (Ondansetron Inj 2 Mg/Ml 2 Ml Vial) 4 mg IV NOW STA Stop: 11/19/24 04:08 Last Admin: 11/19/24 04:17 Dose: 4 mg Documented By: ERNESTO Ondansetron HCl (Ondansetron Inj 2 Mg/Ml 2 Ml Vial) 4 mg IV ONE ONE Stop: 11/19/24 09:32 Last Admin: 11/19/24 09:41 Dose: 4 mg Documented By: ROCCO Medical Decision Making Differential Diagnosis Differential diagnosis: Etiologies such as shingles, pyelonephritis/UTI, renal colic, appendicitis, diverticulitis, mesenteric ischemia, torsion, aortic pathology, infections, inflammatory bowel disease, bowel obstruction, PUD, biliary pathology, as well as others were entertained. Laboratory Data 11/19/24 03:42 11/19/24 03:42 Lab Results 11/19/24 11/19/24 Range/Units 03:42 05:13 WBC 10.28 (4.8-10.8) K/ul RBC 4.59 (4.20-5.40) M/uL Hgb 14.0 (12.0-16.0) g/dl Hct 40.3 (37.0-47.0) % MCV 87.8 (80.0-100.0) fL MCH 30.5 (25.0-34.0) pg MCHC 34.7 (32.0-36.0) g/dL RDW Std Deviation 44.0 (36.4-46.3) fL RDW Coeff of [place] 13.9 (11.5-14.5) % Plt Count 291 (130-400) K/uL MPV 10.0 (9.4-12.4) fL Immature Gran % (Auto) 0.3 % Neut % (Auto) 81.5 % Lymph % (Auto) 8.4 % [place] % (Auto) 9.5 % Eos % (Auto) 0.1 % Baso % (Auto) 0.2 % Neut # (Auto) 8.38 H (1.40-6.50) K/uL Lymph # (Auto) 0.86 L (1.20-3.40) K/uL [place] # (Auto) 0.98 H (0.11-0.59) K/uL Eos # (Auto) 0.01 (0.00-0.50) K/uL Baso # (Auto) 0.02 (0.00-0.20) K/uL Immature Gran # (Auto) 0.03 (0.01-0.20) K/uL Sodium 136 (136-145) mmol/L Potassium 3.5 (3.5-5.1) mmol/L Chloride 106 (98-107) mmol/L Carbon Dioxide 19 L (21-32) mmol/L Anion Gap 11 (3-11) BUN 13 (6-23) mg/dl Creatinine 1.17 (0.6-1.2) mg/dl Est Cr Clr Drug Dosing 68.5 ml/min eGFR 57.56 BUN/Creatinine Ratio 11.1 (10-20) Glucose 131 H (70-99(Fasting)) mg/dl Calcium 9.0 (8.6-10.3) mg/dl Total Bilirubin 1.1 H (0.2-1.0) mg/dl AST 10 L (13-39) U/L ALT 7 (7-52) U/L Alkaline Phosphatase 83 (34-104) U/L Total Protein 7.4 (6.0-8.3) gm/dl Albumin 4.1 (3.4-5.0) gm/dl Globulin 3.3 (2.5-4.0) gm/dl Albumin/Globulin Ratio 1.2 (0.9-2) Lipase 13 (11-82) U/L Urine Color Yellow Urine Appearance Clear (Clear) Urine pH 7.0 (4.5-7.5) Ur Specific [place] 1.019 (1.000-1.030) Urine Protein Trace H (Negative) Urine Glucose (UA) Negative (Negative) Urine Ketones 1+ H (Negative) Urine Blood 2+ H (Negative) Urine Nitrite Negative (Negative) Urine Bilirubin Negative (Negative) Urine Urobilinogen Negative (Negative) Ur Leukocyte Esterase 3+ H (Negative) Urine WBC (Auto) 21-50 H (0-5) /hpf Urine RBC (Auto) 0-2 (0-2) /hpf U Hyaline Cast (Auto) 0-2 (0-2) /lpf U Epithel Cells (Auto) 0-2 (0-2) /hpf Urine Bacteria (Auto) None Seen (None Seen) Urine Comment Imaging Data Radiologist's Impression: Retrograde Pyelogram 11/19/24 00:00 FL retrograde includes kub CLINICAL HISTORY: RIGHT STENT PLACEMENT COMPARISON STUDY: None FLUOROSCOPY TIME: 92 seconds FLUOROSCOPY IMAGES: 3 EXPOSURE DOSE: 22 mGy FINDINGS: Fluoroscopy was provided for urologic procedure. IMPRESSION: Intraoperative fluoroscopy. ACT 112: Negative or not required by law. Electronically signed by: Alon Denson M.D. 11/19/2024 3:06 PM Pelvis Ultrasound 11/19/24 04:07 PELVIC ULTRASOUND CLINICAL HISTORY: RLQ abd pain, hyster, eval ovary. COMPARISON STUDY: CT of the abdomen and pelvis performed earlier today. TECHNIQUE: Transabdominal and transvaginal sonography of the pelvis was performed. FINDINGS: The uterus is surgically absent. There is color flow within each ovary. The right ovary is partially obscured but measures approximately 2 x 1.8 x 1.8 cm. The left ovary measures 3.2 x 2.3 x 3.2 cm and contains an anechoic 2.9 cm lesion consistent with a cyst. No free fluid is noted within the cul-de-sac. There is no adnexal mass. IMPRESSION: 1. 2.9 cm left ovarian cyst. 2. No sonographic evidence for ovarian torsion. 3. Status post hysterectomy. ACT 112: Negative or not required by law. Electronically signed by: Pasha Estrada M.D. 11/19/2024 8:26 AM Transvaginal US 11/19/24 04:08 PELVIC ULTRASOUND CLINICAL HISTORY: RLQ abd pain, hyster, eval ovary. COMPARISON STUDY: CT of the abdomen and pelvis performed earlier today. TECHNIQUE: Transabdominal and transvaginal sonography of the pelvis was performed. FINDINGS: The uterus is surgically absent. There is color flow within each ovary. The right ovary is partially obscured but measures approximately 2 x 1.8 x 1.8 cm. The left ovary measures 3.2 x 2.3 x 3.2 cm and contains an anechoic 2.9 cm lesion consistent with a cyst. No free fluid is noted within the cul-de-sac. There is no adnexal mass. IMPRESSION: 1. 2.9 cm left ovarian cyst. 2. No sonographic evidence for ovarian torsion. 3. Status post hysterectomy. ACT 112: Negative or not required by law. Electronically signed by: Pasha Estrada M.D. 11/19/2024 8:26 AM MDM Narrative Physical exam and history were performed. Nursing notes, EMR, and Medication List were personally reviewed. No social concerns were identified as barriers to patients care. History was provided by the Patient. Patient appears to have right-sided abdominal pain. This seems to be quite anterior for the patient and not distinctly in the right flank. There is a past history of kidney stones. She still has her appendix and ovary on the right side as well. There is no rash on exam. IV access was established and labs were obtained. Patient was hydrated with normal saline. She was given IV morphine and IV Tylenol for pain control. Patient was sent to CT scan for imaging of her abdomen and pelvis. She was also ordered ultrasound to evaluate for possible ovarian etiology. Patient's blood work is as above and was reviewed. She does not have significant elevated white blood cell count, gross anemia, bandemia, or significant electrolyte imbalance. Lipase and transaminases not diagnostic. CT scan was performed and independently reviewed by myself and radiology. She seems to have a moderate right-sided hydronephrosis due to an obstructing 6 mm proximal ureteral calculi. Her appendix appears to be normal. This likely is the cause of her symptoms, and on imaging seems fairly impressive. On reevaluation after CT scan the patient is feeling improved after pain medication. Ultrasound was slightly delayed as there was a nonrelated emergent surgical case that required sonography assistance. Patient was kept updated on her findings. She remained in stable condition until the time of shift change. Case was discussed with my colleague, Giancarlo Zhong PA-C, who will assume care at this time. Please see Mr. Zhong's dictation for further patient course, plan, disposition pending ultrasound. The chart was completed utilizing [employer] Speech Voice Recognition Software. Grammatical errors, random word insertions, pronoun errors, and incomplete sentences are an occasional consequence of this system due to software limitations, ambient noise, and hardware issues. Any formal questions or concerns about the content, text, or information contained within the body of this dictation should be directly addressed to the provider for clarification. Impression & Plan Calculus of proximal right ureter, Hydronephrosis, Flank Pain Discharge Plan Visit Data Chief Complaint: Flank Pain Stated Complaint: R SIDE PAIN, VOMITING ED Provider: Radha Tolentino ED Midlevel Provider: Chris Zhong Discharge Problem: Calculus of proximal right ureter, Hydronephrosis, Flank Pain Patient Disposition: Admitted As Inpatient Condition: Good Discharge Instructions Interventions: ED Discharge Assessment Last Done: 11/19/24 11:06
[2024-11-19 06:26] LABS: Appearance Urine Clear (Clear); Bacteria Urine Automated None Seen (None Seen); Cast Urine Automated 0-2 /lpf (0-2); Epithelial Cell Urine Auto 0-2 /hpf (0-2); Glucose Urine UA Negative (Negative); RBC Urine Automated 0-2 /hpf (0-2); WBC Urine Automated 21-50 /hpf (0-5)
--- NOTE | 2024-11-19 07:05 | Emergency Department Note ---
ED Visit Note This 49-year-old female's care was transferred to me from Dionisio Gonzalez PA-C at change of shift. The patient presented with complaint of right lower q uadrant/flank pain. At the time of transfer of care, the patient was awaiting CT of the abdomen and pelvis, as well as pelvic ultrasound to rule out right ovarian torsion. The patient does have a prior history of hysterectomy without oophorectomy. The patient does have known history of kidney stones, but the patient does not feel that her current presentation is similar to prior kidney stone pain. Review of labs did not show any significant leukocytosis. CMP does not show any acute kidney injury or other significant lecture light abnormalities other than an elevated glucose. Urinalysis does show 2+ hematuria with 3+ leukocyte esterase and no urine bacteria. CT of the abdomen and pelvis does show a moderate right hydronephrosis due to an obstructing 6 mm UPJ calculus. A left ovarian cyst was also noted on CT imaging. There was a delay until pelvic ultrasound could be completed. CT findings were discussed with the patient. 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 She has also had laser lithotripsy on the right at [facility] in [place]. The patient was administered an additional dose of IV Dilaudid because of persistent pain. At this point, I did reach out to [facility], who did come to evaluate the patient, and will be taking the patient to the OR later for a ureteral stent. They did ask for the hospitalist service to admit until they can take her to the OR. I then reached out to our [facility], and spoke with the [facility] hospitalist team, who agreed with further assistance with the patient. Pelvic ultrasound was completed, showing a 2.9 cm left ovarian cyst, without evidence for right ovarian torsion. The patient was advised of these findings as well. The patient did require 2 doses of IV Dilaudid for pain control while under my care in the emergency department. DIAGNOSIS: 1. Obstructive right UPJ stone with hydronephrosis 2. Left ovarian cyst .
[2024-11-19] MEDS: HYDROmorphone INJ 0.5 MG/0.5 ML SYR IV STA ×3 (07:22→18:10)
--- NOTE | 2024-11-19 07:36 | Urology Consultation ---
Date of Consultation November 19, 2024 Assessment & Plan (1) Calculus of proximal right ureter: 49-year-old male with longstanding history of bilateral nephrolithiasis presented to the Emergency Department today for evaluation of right flank/abdominal pain, nausea and vomiting. Patient currently afebrile, hemodynamically stable Labs reviewedcreatinine 1.17, WBC 10.28, hemoglobin 14.0 Urinalysis showed 2+ blood, 3+ LE, 21-50 WBC, negative for bacteria Urine culture is pending CT abdomen pelvis demonstrates an obstructing 6 mm right proximal ureteral stone with moderate hydronephrosis Subjectively patient continues to have significant right flank/abdominal pain She reports measured fever at home prior to arrival We discussed options for stone management including cystoscopy and right ureteral stent placement given intractable pain and concern for fever We discussed stone treatment will take place at a later date, she is agreeable to proceed Ureteral stents were discussed in detail Proceed to OR today for cystoscopy, retrograde pyelogram and right ureteral stent placement Risks and benefits of procedure to be reviewed with patient by Dr. Radha Ramirez n.p.o. for procedure Recommend start broad-spectrum antibiotics and follow-up culture will follow Supervising Physician Co-Signing Physician Notes Agree with above. Plan for cystoscopy and right ureteral stent placement. History of Present Illness Reason for Consultation: Right ureteral calculus History of Present Illness This is a 49-year-old female with past medical history of bilateral nephrolithiasis who presented to the emergency department today for evaluation of worsening right flank/abdominal pain, nausea and vomiting. On arrival to ED, she was afebrile, tachycardic, hypertensive. Lab work showed WBC 10.28, hemoglobin 14.0, creatinine 1.17. Urinalysis showed trace protein, 1+ ketones, 2+ blood, 3+ LE, 21-50 WBC, negative for bacteria. Urine culture collecting and is pending. Workup included CT abdomen pelvis with IV contrast which demonstrated moderate right hydronephrosis secondary to an obstructing 6 mm right UPJ calculus. ED course: IV fluids, morphine, ondansetron, acetaminophen, hydromorphone. Patient seen and examined in the emergency department. She is resting in litter. She reports right flank/abdominal discomfort started 2 days ago. She follows with urology at [facility] (Dr. Bledsoe) and had a routine CT on 11/15/2024, but had not heard about results. She developed worsening right sided discomfort, nausea and vomiting which prompted ED evaluation. She is voiding spontaneously. No dysuria or hematuria. She reports fever of 101 overnight and took Tylenol. She reports long history of nephrolithiasis. She has history of staghorn calculi and underwent PCNL in ~2019. She also has history of ureteroscopy and laser lithotripsy for stones. Allergies Allergy/AdvReac Type Severity Reaction Status Date / Time amoxicillin Allergy Intermediate Rash Verified 11/19/24 13:33 clavulanic acid Allergy Intermediate Rash Verified 11/19/24 13:33 Home Medications Medication Instructions Recorded Confirmed Type cholecalciferol (vitamin D3) 125 5,000 unit PO QAM 09/21/18 11/19/24 History mcg (5,000 unit) tablet (Vitamin D3) ondansetron 4 mg disintegrating 4 mg PO Q6 PRN Nausea 09/21/18 11/19/24 History tablet tizanidine 4 mg capsule 4 mg PO Q8H PRN muscle spasms 09/21/18 11/19/24 History docusate sodium 100 mg capsule 200 mg PO DAILY 09/14/20 11/19/24 History (Colace) multivitamin 1 tab PO DAILY 09/14/20 11/19/24 History tamsulosin 0.4 mg capsule 0.4 mg PO QAM 09/14/20 11/19/24 History albuterol sulfate 90 mcg/actuation 2 puff inhalation DIRECTED PRN 09/15/21 11/19/24 History aerosol inhaler Shortness Of Breath acetaminophen 325 mg capsule 650 mg PO Q6H PRN Pain 10/04/22 11/19/24 History cyanocobalamin (vitamin B-12) 1,000 mcg PO DAILY 10/04/22 11/19/24 History 1,000 mcg tablet famotidine 20 mg tablet 20 mg PO BID PRN Acid Reflux 10/04/22 11/19/24 History hydroxyzine HCl 10 mg tablet 10 mg PO Q6 PRN Anxiety 10/04/22 11/19/24 History ibuprofen 800 mg tablet 800 mg PO TID PRN Pain 10/04/22 11/19/24 History triamcinolone acetonide 0.5 % 1 applic topical HS 10/04/22 11/19/24 History topical cream zinc 25 mg tablet 25 mg PO DAILY 10/04/22 11/19/24 History allopurinol 300 mg tablet 300 mg PO DAILY 11/19/24 11/19/24 History polyethylene glycol 3350 17 gram 17 g PO DAILY PRN Constipation 11/19/24 11/19/24 History oral powder packet Patient History Medical History (Updated 11/19/24 @ 13:35 by Muriel Gurrola PA-C) Romero-Danlos syndrome Fibromyalgia Tobacco use disorder History of molar PARTIAL MOLAR GERD (gastroesophageal reflux disease) Romero-Danlos syndrome Classic Fibromyalgia Asthma HX OF CHILDHOOD ASTHMA, PT STATES HER ASTHMA HAD RESOLVED BUT SHE HAD HER FIRST ASTHMA ATTACK 1 YEAR AGO AN ADULT. SEASONAL RELATED. ALBUTEROL INHALER PRN. Surgical History (Updated 11/19/24 @ 13:35 by Muriel Gurrola PA-C) H/O dilation and curettage S/P section S/P tonsillectomy and adenoidectomy History of dilation and curettage History of tooth extraction History of tonsillectomy History of adenoidectomy History of esophagogastroduodenoscopy (EGD) History of cholecystectomy History of colonoscopy History of section Social History Smoking Status: Current every day smoker Cigarettes Per Day: HX OF 1/2 PPD X20.; Second Hand Exposure: No; Do You Dip or Chew Tobacco: No; Hx Alcohol Use: No Hx Substance Use: No Preferred Language: Cambodian Communication Ability: Effective Plant Etiologist Required: No Beliefs That Will Affect Care: None Current Living Situation: Spouse Feels Safe at Home: Yes Assistive Devices: Glasses Review of Systems Review of Systems: ROS was performed with pertinent positives noted as above; all other systems negative Physical Exam Constitutional: well developed and well nourished; no acute distress Respiratory: normal respiratory effort; no respiratory distress and no labored breathing Gastrointestinal (Abdomen): Inspection/Auscultation: abdomen normal to inspection Musculoskeletal: Head/Neck/Chest: normocephalic Neurologic: moves all extremities and awake Psychiatric: Orientation: alert and oriented x 3 Genitourinary: no CVA tenderness Results & Data Vital Signs (Past 12 Hours) Vital Signs Temp Pulse Pulse Resp BP BP Pulse Ox 11/19/24 07:22 94 H 22 131/85 98 11/19/24 06:30 97 H 20 125/90 94 11/19/24 06:00 95 H 16 125/75 96 11/19/24 05:33 93 H 14 133/83 96 11/19/24 04:30 92 H 16 126/95 97 11/19/24 04:18 103 H 23 141/86 H 97 11/19/24 04:17 100 H 11/19/24 03:30 37.2 C 135 H 18 150/83 H 97 O2 Del Method 11/19/24 07:22 Room Air 11/19/24 06:30 Room Air 11/19/24 06:00 Room Air 11/19/24 05:33 Room Air 11/19/24 04:30 Room Air 11/19/24 04:18 Room Air 11/19/24 04:17 11/19/24 03:30 Room Air PG Care Time/CCT Total # of Minutes Spent Total Time Spent with Patient: Total time spent is greater than 50% in coordination of care (as documented) at patient's floor/unit and/or counseling patient: Coding Level of Care Code 99010 IN/OBS CONSULT LVL 4,60M Diagnoses Calculus of proximal right ureter N20.1
--- NOTE | 2024-11-19 07:53 | History & Physical Report ---
Date of Service November 19, 2024 Assessment & Plan (1) Hydronephrosis: (2) Calculus of proximal right ureter: (3) Fibromyalgia: (4) Tobacco use disorder: Plan This is a 49yo F with PMH of bilateral nephrolithiasis, Romero-Denlos syndrome,Fibromyalgia, tobacco use disorder and other medical problems listed below who presents to ED for evaluation of worsening right flank pain, nausea and vomiting x 2 days who was admitted for treatment of obstructive ureteral stone in R UPJ calculus. Obstructive R UPC stone with associated R hydronephrosis Possible complicated UTI meeting SIRs criteria Reporting Tmax 101 prior to arrival but has remained afebrile here. Elevated HR 100, no leukocytosis, possible infected stone History of nephrolithiasis requiring procedural treatment, follows with Dr. Bledsoe of [facility] urology CT abdomen pelvis with IV contrast which demonstrated moderate right hydronephrosis secondary to an obstructing 6 mm right UPJ calculus Urinalysis showed trace protein, 1+ ketones, 2+ blood, 3+ LE, 21-50 WBC, negative for bacteria. Urine culture collecting and is pending Discussed with urology service - plan for OR this afternoon Continue IV fluids Pain control, antiemetics Flomax x 1 Covering with Rocephin empirically, follow urine culture Tobacco use disorder Smokes 1/2 ppd Nicotine patch ordered Fibromyalgia Romero-Denlos syndrome Follows with Dr. Suh of [facility] Continue PRN Tizanidine, tylenol and ibuprofen as needed DVT Ppx: SCDs for now with anticipated procedure Code status: FULL PCP: Altaf Dispo: Admitted to med/surg Patient seen in collaboration with Dr. Chanel. Please see addendum. I spent a total of 75 minutes coordinating, documenting, and providing care for this patient excluding time spent in the performance of separately billed services or time spent by another provider/QHP. History of Present Illness Chief Complaint: RLQ pain Primary Care Provider: Oliverio Solitario MD This is a 49yo F with PMH of bilateral nephrolithiasis, Romero-Denlos syndrome,Fibromyalgia, tobacco use disordera and other medical problems listed below who presents to ED for evaluation of worsening right flank pain, nausea and vomiting x 2 days. Describes R sided abdominal pain radiation to flank and lower back and is a sharp, colicky pain. Worse with movement and when she urinates. Tried tylenol and some leftover oxybutynin at home but did not improve symptoms so came to ED for further evaluation. Also endorsing fever with Tmax 101 F overnight as well as decreased appetite, nausea and vomiting. Follows with Dr. Bledsoe of [facility] urology with intervention and lithotripsy in the past. In ED, was given Morphine and dilaudid with some improvement of pain. Nausea improved. Afebrile since arrival. Was evaluated by urology with plans for OR this afternoon. Smokes 1/2 ppd. ED course: WBC 10.28, hemoglobin 14.0, creatinine 1.17. Urinalysis showed trace protein, 1+ ketones, 2+ blood, 3+ LE, 21-50 WBC, negative for bacteria. Urine culture collecting and is pending CT abdomen pelvis with IV contrast which demonstrated moderate right hydronephrosis secondary to an obstructing 6 mm right UPJ calculus Allergies Allergy/AdvReac Type Severity Reaction Status Date / Time amoxicillin Allergy Intermediate Rash Verified 11/19/24 13:33 clavulanic acid Allergy Intermediate Rash Verified 11/19/24 13:33 Home Medications Medication Instructions Recorded Confirmed Type cholecalciferol (vitamin D3) 125 5,000 unit PO QAM 09/21/18 11/19/24 History mcg (5,000 unit) tablet (Vitamin D3) ondansetron 4 mg disintegrating 4 mg PO Q6 PRN Nausea 09/21/18 11/19/24 History tablet tizanidine 4 mg capsule 4 mg PO Q8H PRN muscle spasms 09/21/18 11/19/24 History docusate sodium 100 mg capsule 200 mg PO DAILY 09/14/20 11/19/24 History (Colace) multivitamin 1 tab PO DAILY 09/14/20 11/19/24 History tamsulosin 0.4 mg capsule 0.4 mg PO QAM 09/14/20 11/19/24 History albuterol sulfate 90 mcg/actuation 2 puff inhalation DIRECTED PRN 09/15/21 11/19/24 History aerosol inhaler Shortness Of Breath acetaminophen 325 mg capsule 650 mg PO Q6H PRN Pain 10/04/22 11/19/24 History cyanocobalamin (vitamin B-12) 1,000 mcg PO DAILY 10/04/22 11/19/24 History 1,000 mcg tablet famotidine 20 mg tablet 20 mg PO BID PRN Acid Reflux 10/04/22 11/19/24 History hydroxyzine HCl 10 mg tablet 10 mg PO Q6 PRN Anxiety 10/04/22 11/19/24 History ibuprofen 800 mg tablet 800 mg PO TID PRN Pain 10/04/22 11/19/24 History triamcinolone acetonide 0.5 % 1 applic topical HS 10/04/22 11/19/24 History topical cream zinc 25 mg tablet 25 mg PO DAILY 10/04/22 11/19/24 History allopurinol 300 mg tablet 300 mg PO DAILY 11/19/24 11/19/24 History polyethylene glycol 3350 17 gram 17 g PO DAILY PRN Constipation 11/19/24 11/19/24 History oral powder packet Past Med/Surg History Problem List (Updated 11/19/24 @ 13:35 by Muriel Gurrola PA-C) Hydronephrosis Calculus of proximal right ureter S/P hysterectomy Medical History (Updated 11/19/24 @ 13:35 by Muriel Gurrola PA-C) Romero-Danlos syndrome Fibromyalgia Tobacco use disorder History of molar PARTIAL MOLAR GERD (gastroesophageal reflux disease) Romero-Danlos syndrome Classic Fibromyalgia Asthma HX OF CHILDHOOD ASTHMA, PT STATES HER ASTHMA HAD RESOLVED BUT SHE HAD HER FIRST ASTHMA ATTACK 1 YEAR AGO AN ADULT. SEASONAL RELATED. ALBUTEROL INHALER PRN. Surgical History (Updated 11/19/24 @ 13:35 by Muriel Gurrola PA-C) H/O dilation and curettage S/P section S/P tonsillectomy and adenoidectomy History of dilation and curettage History of tooth extraction History of tonsillectomy History of adenoidectomy History of esophagogastroduodenoscopy (EGD) History of cholecystectomy History of colonoscopy History of section Social History Smoking Status: Current every day smoker Cigarettes Per Day: HX OF 1/2 PPD X20.; Second Hand Exposure: No; Do You Dip or Chew Tobacco: No; Hx Alcohol Use: No Hx Substance Use: No Preferred Language: Japanese Communication Ability: Effective Senior Front End Developer Required: No Beliefs That Will Affect Care: None Current Living Situation: Spouse Feels Safe at Home: Yes Assistive Devices: Glasses Review of Systems Review of Systems: At least ten systems reviewed and negative except as noted in the HPI. Physical Exam Physical Exam: General Appearance: WD/WN, vitals as above, NAD, sitting up in bed, in acute pain Head: normocephalic, atraumatic Eyes: normal inspection, PERRL, conjunctivae normal, anicteric sclerae ENT: external ear and nose normal, dry mucous membranes of oropharynx Neck: normal visual inspection Respiratory: normal respiratory effort, lungs clear to auscultation, no wheeze, rales, rhonchi. No accessory muscle use Cardiovascular: tachycardic rate, regular rhythm, normal peripheral pulses, no BLE edema. Vessels: no JVD Chest: normal inspection of chest Abdomen/GI: normal bowel sounds, soft, TTP RLQ radiating to R flank and lower back Extremities/Musculoskeletal: no cyanosis or clubbing, extremities motor strength 5/5 Neurologic: PERRL, EOMI, accommodation nl, no face palsy, no dysarthria, CN's II-XI intact bilaterally and moves all extremities Psychiatric: A+Ox3, euthymic affect Skin: no rashes, normal color, warm/dry Results & Data Results & Data Vital Signs (Past 12 Hours) Vital Signs Temp Pulse Pulse Resp BP BP Pulse Ox 11/19/24 07:22 94 H 22 131/85 98 11/19/24 06:30 97 H 20 125/90 94 11/19/24 06:00 95 H 16 125/75 96 11/19/24 05:33 93 H 14 133/83 96 11/19/24 04:30 92 H 16 126/95 97 11/19/24 04:18 103 H 23 141/86 H 97 11/19/24 04:17 100 H 11/19/24 03:30 37.2 C 135 H 18 150/83 H 97 O2 Del Method 11/19/24 07:22 Room Air 11/19/24 06:30 Room Air 11/19/24 06:00 Room Air 11/19/24 05:33 Room Air 11/19/24 04:30 Room Air 11/19/24 04:18 Room Air 11/19/24 04:17 11/19/24 03:30 Room Air Laboratory Results Short CBC 11/19/24 Range/Units 03:42 WBC 10.28 (4.8-10.8) K/ul Hgb 14.0 (12.0-16.0) g/dl Hct 40.3 (37.0-47.0) % Plt Count 291 (130-400) K/uL BMP 11/19/24 03:42 Sodium 136 Potassium 3.5 Chloride 106 Carbon Dioxide 19 L BUN 13 Creatinine 1.17 Glucose 131 H Calcium 9.0 Liver Function 11/19/24 Range/Units 03:42 Total Bilirubin 1.1 H (0.2-1.0) mg/dl AST 10 L (13-39) U/L ALT 7 (7-52) U/L Alkaline Phosphatase 83 (34-104) U/L Albumin 4.1 (3.4-5.0) gm/dl Urine 11/19/24 Range/Units 05:13 Urine Color Yellow Urine Appearance Clear (Clear) Urine pH 7.0 (4.5-7.5) Ur Specific [place] 1.019 (1.000-1.030) Urine Protein Trace H (Negative) Urine Glucose (UA) Negative (Negative) Diagnostic Findings Abdomen/Pelvis CT 11/19/24 04:07 EXAM: CT abd pelvis IV con only CLINICAL HISTORY: rlq abd pain. No gallbladder/uterus TECHNIQUE: Contiguous axial images were obtained from the level of the diaphragm to the pubic symphysis with intravenous contrast. Coronal and sagittal reconstructions were likewise performed and indicated to increase the sensitivity for detecting clinically relevant pathology. If IV contrast material had not been administered, the likelihood of detecting abnormalities relevant to the patient's condition would have been substantially decreased. CT scan was performed according to ALARA (as low as reasonable achievable). COMPARISON: 17:05:44 OCEAN FORWARDER FINDINGS: The visualized lung bases are clear. The liver is normal in size and attenuation. No focal liver lesions are seen. There is no intra or extrahepatic biliary ductal dilatation. Hepatic vasculature is patent. The gallbladder is surgically removed. The spleen, pancreas, and right adrenal gland are unremarkable. 14 mm nodule seen in left adrenal gland. The kidneys are normal in size and attenuation. Right kidney shows non-obstructing calculus of size 3 mm in lower calyx. Right sided moderate hydronephrosis due to an obstructing calculus of size 6 mm involving right pelviureteric junction - HU around 1300. Focal cortical scarring is noted involving interpolar region of left kidney. About 29 x 18 mm size cyst with patchy wall calcification is noted involving left interpolar region- complex cyst Bosniak type II. The bladder is normal in contour. Pelvic viscera are unremarkable. No focal or diffuse bowel wall thickening or evidence of bowel obstruction is identified. The appendix is visualized in the right lower quadrant and appears within normal limits. Abdominal and pelvic vasculature is patent. No adenopathy or fluid collections are seen. No aggressive appearing osseous lesions are identified. Hysterectomy status. About 29 x 23 mm sized unilocular cyst is noted involving left ovary. IMPRESSION: 1. Right kidney shows non-obstructing calculus of size 3 mm in lower calyx.-stable. 2. Right sided moderate hydronephrosis due to an obstructing calculus of size 6 mm involving right pelviureteric junction - HU around 1300.-new finding. 3. Focal cortical scarring is noted involving interpolar region of left kidney. About 29 x 18 mm size cyst with patchy wall calcification is noted involving left interpolar region- complex cyst Bosniak type II-stable. 4. 14 mm nodule seen in left adrenal gland. 5. Left ovarian cyst as described - USG correlation suggested-new finding. Electronically signed by Louie Thakkar 11-19-2024 05:53 AM Pelvis Ultrasound 11/19/24 04:07 PELVIC ULTRASOUND CLINICAL HISTORY: RLQ abd pain, hyster, eval ovary. COMPARISON STUDY: CT of the abdomen and pelvis performed earlier today. TECHNIQUE: Transabdominal and transvaginal sonography of the pelvis was performed. FINDINGS: The uterus is surgically absent. There is color flow within each ovary. The right ovary is partially obscured but measures approximately 2 x 1.8 x 1.8 cm. The left ovary measures 3.2 x 2.3 x 3.2 cm and contains an anechoic 2.9 cm lesion consistent with a cyst. No free fluid is noted within the cul-de-sac. There is no adnexal mass. IMPRESSION: 1. 2.9 cm left ovarian cyst. 2. No sonographic evidence for ovarian torsion. 3. Status post hysterectomy. ACT 112: Negative or not required by law. Electronically signed by: Pasha Estrada M.D. 11/19/2024 8:26 AM Transvaginal US 11/19/24 04:08 PELVIC ULTRASOUND CLINICAL HISTORY: RLQ abd pain, hyster, eval ovary. COMPARISON STUDY: CT of the abdomen and pelvis performed earlier today. TECHNIQUE: Transabdominal and transvaginal sonography of the pelvis was performed. FINDINGS: The uterus is surgically absent. There is color flow within each ovary. The right ovary is partially obscured but measures approximately 2 x 1.8 x 1.8 cm. The left ovary measures 3.2 x 2.3 x 3.2 cm and contains an anechoic 2.9 cm lesion consistent with a cyst. No free fluid is noted within the cul-de-sac. There is no adnexal mass. IMPRESSION: 1. 2.9 cm left ovarian cyst. 2. No sonographic evidence for ovarian torsion. 3. Status post hysterectomy. ACT 112: Negative or not required by law. Electronically signed by: Pasha Estrada M.D. 11/19/2024 8:26 AM Code Status & VTE Plan VTE Prophylaxis Plan VTE Prophylaxis will be ordered: Yes
--- NOTE | 2024-11-19 08:28 | Ultrasound Report ---
PELVIC ULTRASOUND CLINICAL HISTORY: RLQ abd pain, hyster, eval ovary. COMPARISON STUDY: CT of the abdomen and pelvis performed earlier today. TECHNIQUE: Transabdominal and transvaginal sonography of the pelvis was performed. FINDINGS: The uterus is surgically absent. There is color flow within each ovary. The right ovary is partially obscured but measures approximately 2 x 1.8 x 1.8 cm. The left ovary measures 3.2 x 2.3 x 3 .2 cm and contains an anechoic 2.9 cm lesion consistent with a cyst. No free fluid is noted within th e cul-de-sac. There is no adnexal mass. IMPRESSION: 1. 2.9 cm left ovarian cyst. 2. No sonographic evidence for ovarian torsion. 3. Status post hysterectomy. ACT 112: Negative or not required by law. Electronically signed by: Pasha Estrada M.D. 11/19/2024 8:26 AM
[2024-11-19] MEDS: ONDANSETRON INJ 2 MG/ML 2 ML VIAL IV ONE (09:41)
[2024-11-19] MEDS: SODIUM CHLORIDE 0.9% 1,000 ML IV SCH (09:43)
[2024-11-19] MEDS: ACETAMINOPHEN 1,000 MG/100 ML VIAL IV SCH (09:52)
[2024-11-19] MEDS ORDERED: POLYETHYLENE (MIRALAX) 17 GM PACK PO PRN (11:51)
[2024-11-19] MEDS ORDERED: ALBUTEROL HFA 8 GM INHALER INH PRN (11:51)
[2024-11-19] MEDS: HYDROmorphone INJ 0.5 MG/0.5 ML SYR IV PRN (12:10)
[2024-11-19] MEDS: TAMSULOSIN HCL 0.4 MG CAP PO SCH (12:13)
[2024-11-19] MEDS: cefTRIAXone SODIUM 2,000 MG/50 ML BAG IV SCH (12:14)
[2024-11-19] MEDS: KETOROLAC TROMETHAMINE 15 MG/ML VIAL IV PRN (12:45)
[2024-11-19] MEDS ORDERED: ONDANSETRON INJ 2 MG/ML 2 ML VIAL ONE (13:26)
[2024-11-19] MEDS ORDERED: LIDOCAINE 2% 2 ML VIAL/AMP(20MG/ML) INFIL ONE (13:26)
[2024-11-19] MEDS ORDERED: PROPOFOL IV EMULSION 10 MG/ML 20 ML VIAL IV ONE (13:26)
[2024-11-19] MEDS ORDERED: MIDAZOLAM HCL 1 MG/ML 2ML VIAL ONE (13:27)
[2024-11-19] MEDS: DIATRIZOATE MEGLUMINE 30% 100ML VIAL INSTIL ONE (14:30)
--- NOTE | 2024-11-19 14:59 | Operative Report ---
PG Post Operative Report Pre & Post Diagnosis Operation Date: 11/19/24 08:20 Pre: obstructing right ureteral calculus Post: obstructing right ureteral calculus I identified the patient and participated in the time-out.: Yes Procedure Operation Date: 11/19/24 08:20 Procedure: cystoscopy, right retrograde pyelogram, right ureteral stent placement Surgeon Tyrell Garcia MD Technology Officer none Estimated Blood Loss 0 Findings Consistent with Post-Op Diagnosis Specimens none Description of Procedure The patient was identified in the preoperative holding area, appropriate inf ormed consents were reviewed and completed and the patient was transferred to the operative suite. Upon arrival, appropriate antibiotics and anesthesia were administered and the patient was placed in dorsal lithotomy position and prepped and draped in sterile fashion. The begin the case I passed a 21 Burkinan cystoscope with 30 degree lens. Inspection revealed a healthy appearing bladder, she does have a notable hemangioma on the posterior wall. Ureteral orifices were in orthotopic position and there is no significant debris within the bladder. Following my full inspection I turned my attention to the right UO. I cannulated it with a sensor wire and a 5 Burkinan open-ended catheter. The wire advanced up the ureter until reaching an opacity in the proximal ureter consistent with the stone. Of note, she earlier received contrast for CT and has not drained this contrast of the kidney. This clearly demonstrated a hydronephrotic and dilated renal pelvis and calyces. I made numerous efforts to navigate the sensor wire around the stone, although I could get it beyond the stone, I was not confident was in the kidney as it did not advance easily. In turn I removed it and performed a retrograde pyelogram. This was done in an effort to try to push the stone slightly retrograde and allow passage of a wire beyond it. There was contrast that did navigate around the stone but the stone did not move. I then placed a zip wire and was able to advance the zip wire into the upper pole of the kidney. My first effort to place a stent was with a 6 Burkinan by 26 cm stent but I could not get the stent to come comfortably passed the stone. I then exchanged for a 4.7 Burkinan multilength stent and I was able to successfully get this stent into the upper pole of the kidney. There was good curl in the kidney as well as the bladder. I then decompressed the bladder and concluded the case. She was reversed of anesthesia and taken to the recovery room in stable condition. Given the degree of impaction of the stone, I think waiting a week to treat her would likely be the best. She can then return for ureteroscopy and have surgery as an outpatient. I attest to the content of the Intraoperative Record and any orders documented therein. Any exceptions are noted below.
--- NOTE | 2024-11-19 15:07 | Fluoroscopy Report ---
FL retrograde includes kub CLINICAL HISTORY: RIGHT STENT PLACEMENT COMPARISON STUDY: None FLUOROSCOPY TIME: 92 seconds FLUOROSCOPY IMAGES: 3 EXPOSURE DOSE: 22 mGy FINDINGS: Fluoroscopy was provided for urologic procedure. IMPRESSION: Intraoperative fluoroscopy. ACT 112: Negative or not required by law. Electronically signed by: Alon Denson M.D. 11/19/2024 3:06 PM
[2024-11-19] MEDS ORDERED: ONDANSETRON INJ 2 MG/ML 2 ML VIAL IV PRN (15:12)
[2024-11-19] MEDS ORDERED: ATROPINE SULFATE 0.1 MG/ML 10ML SYR IV PRN (15:12)
--- NOTE | 2024-11-19 15:39 | Anesthesiology Progress Note ---
Date of Service November 19, 2024 Anesthesia Post Procedure Vital Signs Vital Signs: Temp Pulse Pulse Resp BP BP Pulse Ox 11/19/24 15:35 88 12 118/86 98 11/19/24 15:25 85 15 128/82 98 11/19/24 15:15 84 12 143/93 H 95 11/19/24 15:09 36 C L 101 H 18 144/100 H 97 11/19/24 14:55 36.8 C 94 H 16 120/93 95 11/19/24 13:26 37.0 C 103 H 20 123/85 96 11/19/24 13:03 87 16 91 11/19/24 13:00 120/83 11/19/24 12:48 104 H 22 95 11/19/24 12:47 111/61 11/19/24 12:47 111/61 11/19/24 12:47 111/61 11/19/24 12:45 98 H 22 96 11/19/24 12:30 90 22 98 11/19/24 12:00 115/73 11/19/24 12:00 115/73 11/19/24 12:00 96 H 14 96 11/19/24 11:42 92 H 16 93 11/19/24 11:30 114/71 11/19/24 11:21 112 H 20 95 11/19/24 11:00 97 H 15 94 11/19/24 11:00 125/81 11/19/24 11:00 125/81 11/19/24 10:30 96 H 13 122/77 94 11/19/24 10:00 93 H 16 148/91 H 93 11/19/24 10:00 99 H 17 148/91 H 94 11/19/24 09:30 105 H 14 128/90 96 11/19/24 09:09 37.4 C 11/19/24 09:00 94 H 19 144/91 H 97 11/19/24 08:23 90 11/19/24 07:30 92 H 17 127/86 94 11/19/24 07:22 94 H 22 131/85 98 11/19/24 06:30 97 H 20 125/90 94 11/19/24 06:00 95 H 16 125/75 96 11/19/24 05:33 93 H 14 133/83 96 11/19/24 04:30 92 H 16 126/95 97 11/19/24 04:18 103 H 23 141/86 H 97 11/19/24 04:17 100 H 11/19/24 03:30 37.2 C 135 H 18 150/83 H 97 O2 Del Method O2 Flow Rate 11/19/24 15:35 Nasal Cannula 2 11/19/24 15:25 Nasal Cannula 2 11/19/24 15:15 Nasal Cannula 2 11/19/24 15:09 Nasal Cannula 2 11/19/24 14:55 Room Air 11/19/24 13:26 Room Air 11/19/24 13:03 11/19/24 13:00 11/19/24 12:48 11/19/24 12:47 11/19/24 12:47 11/19/24 12:47 11/19/24 12:45 11/19/24 12:30 11/19/24 12:00 11/19/24 12:00 11/19/24 12:00 11/19/24 11:42 11/19/24 11:30 11/19/24 11:21 11/19/24 11:00 11/19/24 11:00 11/19/24 11:00 11/19/24 10:30 11/19/24 10:00 11/19/24 10:00 11/19/24 09:30 11/19/24 09:09 11/19/24 09:00 11/19/24 08:23 11/19/24 07:30 11/19/24 07:22 Room Air 11/19/24 06:30 Room Air 11/19/24 06:00 Room Air 11/19/24 05:33 Room Air 11/19/24 04:30 Room Air 11/19/24 04:18 Room Air 11/19/24 04:17 11/19/24 03:30 Room Air Pain Intensity Right Abdomen: Pain Intensity: 7 Abdomen: Pain Intensity: 4 Transfer of Care Handoff Completed per policy Notes Mental Status: alert / awake / arousable Patient Amnestic to Procedure: Yes Nausea / Vomiting: adequately controlled Pain: adequately controlled Airway Patency, RR, SpO2: stable & adequate BP & HR: stable & adequate Hydration State: stable & adequate Anesthetic Complications: no major complications apparent
[2024-11-19] MEDS: SUCRALFATE 1 GM/10 ML UDC PO SCH (18:10)
[2024-11-19] MEDS ORDERED: PROMETHAZINE 12.5 MG/50.5 ML BAG IV PRN (19:07)
[2024-11-19] MEDS: ONDANSETRON INJ 2 MG/ML 2 ML VIAL IV PRN (20:01)
[2024-11-19] MEDS: PHENAZOPYRIDINE HCL 100 MG TAB PO PRN (20:18)
[2024-11-19] MEDS: NICOTINE 14 MG/24 HR PATCH TD SCH (20:18)
[2024-11-19] MEDS: TRIAMCINOLONE ACET 0.5% CR 15 GM TUBE TOP SCH (20:40)
[2024-11-20 07:28] LABS: Hematocrit (blood only) 34.3 % (37.0-47.0); Hemoglobin 11.4 g/dl (12.0-16.0); Mean Corpuscular Hemoglobin 30.8 pg (25.0-34.0); Mean Corpuscular Volume 92.7 fL (80.0-100.0); Platelet Count 230 K/uL (130-400); RDW Standard Deviation 47.6 fL (36.4-46.3); Red Blood Count 3.70 M/uL (4.20-5.40); White Blood Count 10.42 K/ul (4.8-10.8)
[2024-11-20 07:31] LABS: Anion Gap 7.0 (3-11); Blood Urea Nitrogen 13.0 mg/dl (6-23); Calcium 8.1 mg/dl (8.6-10.3); Carbon Dioxide 21.0 mmol/L (21-32); Chloride 106.0 mmol/L (98-107); Creatinine Clr Calc Pharmacy 67.0 ml/min; Glucose 115.0 mg/dl (70-99(Fasting)); Potassium 3.7 mmol/L (3.5-5.1); Sodium 134.0 mmol/L (136-145)
[2024-11-20] MEDS: REMOVE NICODERM PATCH SCH (07:55)
[2024-11-20] MEDS: CYANOCOBALAMIN (B-12) 500 MCG TABLET PO SCH (08:00)
[2024-11-20] MEDS: FAMOTIDINE 20 MG TAB PO PRN (08:00)
[2024-11-20] MEDS: CHOLECALCIFEROL 125 MCG (5,000 UNITS) TAB PO SCH (08:00)
[2024-11-20] MEDS: MULTIVITAMIN TAB PO SCH (08:01)
[2024-11-20] MEDS: DOCUSATE SODIUM 100 MG CAP PO SCH (08:03)
[2024-11-20 08:11] LABS: Hemoglobin A1C 5.9 % (4.5-5.6)
--- NOTE | 2024-11-20 08:32 | Urology Progress Note ---
Date of Service November 20, 2024 Assessment & Plan (1) Calculus of proximal right ureter: (2) Hydronephrosis: Plan Severely impacted/obstructing calculus of the proximal right ureter Stent placed yesterday Some improvement today Still not quite back to normal Likely requires another day in the hospital and definitive speciation of her culture Presuming we can identify the appropriate pathogen and treat her to resolution, likely surgery in 1 week to try to treat her stone (as an outpt) Admission and Anticipated Discharge Date Admission Date: November 19, 2024 Subjective Doing okay Still with some pain Febrile overnight Improved from yesterday but certainly not back to baseline Results & Data Vital Signs (Past 12 Hours) Vital Signs Temp Pulse Resp BP Pulse Ox O2 Del Method 11/20/24 07:09 37.0 C 90 16 98/54 L 97 Room Air 11/20/24 04:57 37.8 C H 11/20/24 03:53 39.2 C H 111 H 18 136/84 90 Room Air 11/20/24 00:00 37.4 C 95 H 16 137/87 96 Room Air PG Care Time/CCT Total # of Minutes Spent Total Time Spent with Patient: Total time spent is greater than 50% in coordination of care (as documented) at patient's floor/unit and/or counseling patient: Coding Level of Care Code 36880 SUB INP/OBS CARE 2/35MIN Diagnoses Calculus of proximal right ureter N20.1 Hydronephrosis N13.30
[2024-11-20] MEDS: SODIUM CHLORIDE 0.9% 500 ML IV ONE ×2 (11:26→13:40)
[2024-11-20] MEDS: POLYETHYLENE (MIRALAX) 17 GM PACK PO PRN (14:13)
--- NOTE | 2024-11-20 15:08 | Hospitalist Progress Note ---
Date of Service November 20, 2024 Assessment & Plan (1) Hydronephrosis: (2) Calculus of proximal right ureter: Plan 49yo F with PMH of bilateral nephrolithiasis, Romero-Denlos syndrome,Fibromyalgia, tobacco use disorder and other medical problems listed below who presents to ED for evaluation of worsening right flank pain, nausea and vomiting x 2 days who was admitted for treatment of obstructive ureteral stone in R UPJ calculus. Obstructive R UPC stone with associated R hydronephrosis Possible complicated UTI meeting SIRs criteria Reporting Tmax 101 prior to arrival, Elevated HR 100, no leukocytosis, possible infected stone History of nephrolithiasis requiring procedural treatment, follows with Dr. Bledsoe of [facility] urology CT abdomen pelvis with IV contrast which demonstrated moderate right hydronephrosis secondary to an obstructing 6 mm right UPJ calculus Urinalysis showed trace protein, 1+ ketones, 2+ blood, 3+ LE, 21-50 WBC, negative for bacteria. On Ceftriaxone Urology consulted POD#1: cystoscopy, right retrograde pyelogram, right ureteral stent placement Continue IV fluids, Flomax Urine culture contaminated - repeat collected today. Continue ceftriaxone. Pain control, antiemetics Febrile overnight with soft BPs this AM. Blood cultures sent. Lactate 0.9. Given NSS 500cc bolus x 2 with improvement. Pain meds likely contributing to hypotension. Tobacco use disorder Smokes 1/2 ppd Nicotine patch ordered Fibromyalgia Romero-Denlos syndrome Follows with Dr. Suh of rheum Continue PRN Tizanidine, tylenol and ibuprofen as needed DVT Ppx: SCDs Code status: FULL PCP: Altaf Dispo: Anticipate d/c home tomorrow Patient seen in collaboration with Dr. Gotti. Please see addendum. I spent a total of 35 minutes coordinating, documenting, and providing care for this patient excluding time spent in the performance of separately billed services or time spent by another provider/QHP. Admission and Anticipated Discharge Date Admission Date: November 19, 2024 Supervising Physician Co-Signing Physician Notes Pt seen and examined by me, care coordinated w/ NICOLA Small, pls refer to her note above for further detail. Pt currently lying down in NAD, but reports right lower abd. pain. Reports feeling little better overall but was febrile early AM, also BP low. Lungs CTAB, heart sounds regular, abdomen soft, mildly tender at RLQ. No LE edema, moves extremities. Cont. to closely monitor. Cont. IV abx. Follow cultx. Urine cultx - recollect. MD Ana María Subjective Following up for obstructing renal calculi, hydronephrosis, s/p cysto and stent placement. Patient seen and examined. Reports feeling improved from yesterday. Hematuria continues. Reports Pyridium is helping with dysuria. Febrile overnight with soft BPs today. Review of Systems Review of Systems: ROS per HPI, all other systems reviewed and negative Physical Exam Constitutional: WD/WN, vitals as above no acute distress Respiratory: normal respiratory effort, lungs clear to auscultation Cardiovascular: Rate/Rhythm: regular rate and regular rhythm Vessels: normal peripheral pulses Extremities: no edema Skin: no rashes, warm and dry Neurologic: no focal motor deficits Psychiatric: A+Ox3, euthymic affect Results & Data Results & Data Vital Signs (Past 12 Hours) Vital Signs Temp Pulse Resp BP Pulse Ox O2 Del Method 11/20/24 14:30 95/62 L 11/20/24 13:35 36.8 C 107/73 11/20/24 11:04 36.7 C 68 16 90/62 L 99 Nasal Cannula 11/20/24 07:09 37.0 C 90 16 98/54 L 97 Room Air 11/20/24 04:57 37.8 C H 11/20/24 03:53 39.2 C H 111 H 18 136/84 90 Room Air Laboratory Results Short CBC 11/20/24 Range/Units 06:23 WBC 10.42 (4.8-10.8) K/ul Hgb 11.4 L (12.0-16.0) g/dl Hct 34.3 L (37.0-47.0) % Plt Count 230 (130-400) K/uL BMP 11/20/24 06:23 Sodium 134 L Potassium 3.7 Chloride 106 Carbon Dioxide 21 BUN 13 Creatinine 1.23 H Glucose 115 H Calcium 8.1 L Medications Administered Current Inpatient Medications Albuterol (Albuterol Hfa 8 Gm Inhaler) 2 puffs INH Q4H PRN PRN Reason: Shortness Of Breath Stop: 12/19/24 11:50 Allopurinol (Allopurinol 300 Mg Tab) 300 mg PO DAILY [facility] Stop: 12/20/24 08:59 Last Admin: 11/20/24 08:01 Dose: 300 mg Cyanocobalamin (Cyanocobalamin (B-12) 500 Mcg Tablet) 1,000 mcg PO DAILY [facility] Stop: 12/20/24 08:59 Last Admin: 11/20/24 08:00 Dose: 1,000 mcg Docusate Sodium (Docusate Sodium 100 Mg Cap) 200 mg PO DAILY [facility] Stop: 12/20/24 08:59 Last Admin: 11/20/24 08:03 Dose: 200 mg Famotidine (Famotidine 20 Mg Tab) 20 mg PO BID PRN PRN Reason: Acid Reflux Stop: 12/19/24 20:59 Last Admin: 11/20/24 08:00 Dose: 20 mg Hydromorphone HCl (Hydromorphone Inj 0.5 Mg/0.5 Ml Syr) 0.5 mg IV Q4H PRN PRN Reason: Severe Pain (Scale 7, 8, 9,10) Stop: 12/03/24 12:29 Last Admin: 11/20/24 10:27 Dose: 0.5 mg Hydroxyzine HCl (Hydroxyzine Hcl 10 Mg Tab) 10 mg PO Q6 PRN PRN Reason: Anxiety Stop: 12/19/24 11:50 Last Admin: 11/20/24 04:37 Dose: 10 mg Sodium Chloride (Nss) 1,000 mls @ 100 mls/hr IV .Q10H [facility] Stop: 11/22/24 09:44 Last Admin: 11/20/24 11:46 Dose: 100 mls/hr Acetaminophen (Ofirmev) 1,000 mg in 100 mls @ 400 mls/hr IV Q8H [facility] Stop: 11/22/24 09:44 Last Infusion: 11/20/24 10:25 Dose: Infused Ceftriaxone Sodium (Rocephin) 2,000 mg in 50 mls @ 100 mls/hr IV Q24H [facility] Stop: 11/29/24 11:59 Last Infusion: 11/20/24 13:04 Dose: Infused Promethazine HCl (Phenergan) 12.5 mg in 50.5 mls @ 202 mls/hr IV Q6H PRN PRN Reason: Nausea And Vomiting Stop: 12/19/24 19:06 Ketorolac Tromethamine (Ketorolac Tromethamine 15 Mg/Ml Vial) 15 mg IV Q6H PRN PRN Reason: Moderate Pain (Scale 4, 5, 6) Stop: 11/24/24 11:51 Last Admin: 11/20/24 07:55 Dose: 15 mg Miscellaneous (Remove Nicoderm Patch) 1 each N/A DAILY@0859 [facility] Stop: 12/20/24 08:58 Last Admin: 11/20/24 07:55 Dose: 1 each Multivitamins (Multivitamin Tab) 1 tab PO DAILY [facility] Stop: 12/20/24 08:59 Last Admin: 11/20/24 08:01 Dose: 1 tab Nicotine (Nicotine 14 Mg/24 Hr Patch) 1 patch TD [facility] Stop: 12/19/24 13:59 Last Admin: 11/20/24 07:59 Dose: Not Given Ondansetron HCl (Ondansetron Inj 2 Mg/Ml 2 Ml Vial) 4 mg IV Q6H PRN PRN Reason: Nausea Stop: 12/19/24 11:05 Last Admin: 11/20/24 03:59 Dose: 4 mg Oxycodone HCl (Oxycodone Hcl Ir 5 Mg Tab (Immediate Release)) 5 mg PO Q4H PRN PRN Reason: Mod-Sev Pain (Scale 4-10) Stop: 12/03/24 20:11 Last Admin: 11/20/24 07:56 Dose: 5 mg Phenazopyridine HCl (Phenazopyridine Hcl 100 Mg Tab) 100 mg PO TID PRN PRN Reason: dysuria, bladder spasms Stop: 12/19/24 19:06 Last Admin: 11/20/24 08:00 Dose: 100 mg Polyethylene Glycol (Polyethylene (Miralax) 17 Gm Pack) 17 gm PO DAILY PRN PRN Reason: Constipation Stop: 12/19/24 11:05 Last Admin: 11/20/24 14:13 Dose: 17 gm Sucralfate (Sucralfate 1 Gm/10 Ml Udc) 1 gm PO QID [facility] Stop: 12/19/24 17:49 Last Admin: 11/20/24 12:34 Dose: 1 gm Tamsulosin HCl (Tamsulosin Hcl 0.4 Mg Cap) 0.4 mg PO QAM [facility] Stop: 12/19/24 11:59 Last Admin: 11/20/24 08:00 Dose: 0.4 mg Tizanidine HCl (Tizanidine Hcl 4 Mg Tablet) 4 mg PO Q8H PRN PRN Reason: muscle spasms Stop: 12/19/24 11:50 Last Admin: 11/20/24 08:26 Dose: 4 mg Triamcinolone Acetonide (Triamcinolone Acet 0.5% Cr 15 Gm Tube) 1 appln [facility] Stop: 12/19/24 20:59 Last Admin: 11/19/24 20:40 Dose: Not Given Vitamin D (Cholecalciferol 125 Mcg (5,000 Units) Tab) 125 mcg PO [facility] Stop: 12/20/24 08:59 Last Admin: 11/20/24 08:00 Dose: 125 mcg
[2024-11-20 19:16] VITALS: RESP 18; TEMP 98.4
[2024-11-21 06:14] LABS: Anion Gap 6.0 (3-11); Blood Urea Nitrogen 12.0 mg/dl (6-23); Calcium 8.4 mg/dl (8.6-10.3); Carbon Dioxide 20.0 mmol/L (21-32); Chloride 111.0 mmol/L (98-107); Creatinine Clr Calc Pharmacy 82.4 ml/min; Glucose 97.0 mg/dl (70-99(Fasting)); Magnesium 2.0 mg/dl (1.7-2.4); Potassium 3.9 mmol/L (3.5-5.1); Sodium 137.0 mmol/L (136-145)
[2024-11-21 06:27] LABS: Hematocrit (blood only) 33.2 % (37.0-47.0); Hemoglobin 10.9 g/dl (12.0-16.0); Mean Corpuscular Hemoglobin 30.5 pg (25.0-34.0); Mean Corpuscular Volume 93.0 fL (80.0-100.0); Platelet Count 201 K/uL (130-400); RDW Standard Deviation 49.1 fL (36.4-46.3); Red Blood Count 3.57 M/uL (4.20-5.40); White Blood Count 5.23 K/ul (4.8-10.8)
[2024-11-21 07:50] VITALS: BP 136/88; PULSE 96; O2SAT 94
--- NOTE | 2024-11-21 15:39 | Discharge Summary ---
Date of Service November 21, 2024 Admission HPI Per Admitting Provider This is a 49yo F with PMH of bilateral nephrolithiasis, Romero-Denlos syndrome,Fibromyalgia, tobacco use disordera and other medical problems listed below who presents to ED for evaluation of worsening right flank pain, nausea and vomiting x 2 days. Describes R sided abdominal pain radiation to flank and lower back and is a sharp, colicky pain. Worse with movement and when she urinates. Tried tylenol and some leftover oxybutynin at home but did not improve symptoms so came to ED for further evaluation. Also endorsing fever with Tmax 101 F overnight as well as decreased appetite, nausea and vomiting. Follows with Dr. Bledsoe of [facility] urology with intervention and lithotripsy in the past. In ED, was given Morphine and dilaudid with some improvement of pain. Nausea improved. Afebrile since arrival. Was evaluated by urology with plans for OR this afternoon. Smokes 1/2 ppd. ED course: WBC 10.28, hemoglobin 14.0, creatinine 1.17. Urinalysis showed trace protein, 1+ ketones, 2+ blood, 3+ LE, 21-50 WBC, negative for bacteria. Urine culture collecting and is pending CT abdomen pelvis with IV contrast which demonstrated moderate right hydronephrosis secondary to an obstructing 6 mm right UPJ calculus Admission Exam Per Admitting Provider General Appearance: WD/WN, vitals as above, NAD, sitting up in bed, in acute pain Head: normocephalic, atraumatic Eyes: normal inspection, PERRL, conjunctivae normal, anicteric sclerae ENT: external ear and nose normal, dry mucous membranes of oropharynx Neck: normal visual inspection Respiratory: normal respiratory effort, lungs clear to auscultation, no wheeze, rales, rhonchi. No accessory muscle use Cardiovascular: tachycardic rate, regular rhythm, normal peripheral pulses, no BLE edema. Vessels: no JVD Chest: normal inspection of chest Abdomen/GI: normal bowel sounds, soft, TTP RLQ radiating to R flank and lower back Extremities/Musculoskeletal: no cyanosis or clubbing, extremities motor strength 5/5 Neurologic: PERRL, EOMI, accommodation nl, no face palsy, no dysarthria, CN's II-XI intact bilaterally and moves all extremities Psychiatric: A+Ox3, euthymic affect Skin: no rashes, normal color, warm/dry Principal Diagnosis Hydronephrosis due to obstructing renal calculi Discharge Exam Constitutional WD/WN, vitals as above no acute distress Respiratory normal respiratory effort, lungs clear to auscultation Cardiovascular Rate/Rhythm: regular rate and regular rhythm Vessels: normal peripheral pulses Extremities: no edema Gastrointestinal (Abdomen) Percussion/Palpation: abdomen soft; abdomen nontender Skin no rashes, warm and dry Neurologic no focal motor deficits Psychiatric A+Ox3, euthymic affect Discharge Data Allergies Allergy/AdvReac Type Severity Reaction Status Date / Time amoxicillin Allergy Intermediate Rash Verified 11/19/24 13:33 clavulanic acid Allergy Intermediate Rash Verified 11/19/24 13:33 Consultations 11/19/24 11:06 Consult Urology Routine Procedures Performed Operation Date: 11/19/24 08:20 Actual Procedures p Cystoscopy Right Ureteral Stent Placement(Right) - Tyrell Garcia MD Ordered Studies Laboratory Results WBC 5.23 K/ul (4.8-10.8) 11/21/24 05:24 RBC 3.57 M/uL (4.20-5.40) L 11/21/24 05:24 Hgb 10.9 g/dl (12.0-16.0) L 11/21/24 05:24 Hct 33.2 % (37.0-47.0) L 11/21/24 05:24 MCV 93.0 fL (80.0-100.0) 11/21/24 05:24 MCH 30.5 pg (25.0-34.0) 11/21/24 05:24 MCHC 32.8 g/dL (32.0-36.0) 11/21/24 05:24 RDW Std Deviation 49.1 fL (36.4-46.3) H 11/21/24 05:24 RDW Coeff of [place] 14.2 % (11.5-14.5) 11/21/24 05:24 Plt Count 201 K/uL (130-400) 11/21/24 05:24 MPV 10.3 fL (9.4-12.4) 11/21/24 05:24 Immature Gran % (Auto) 0.3 % 11/19/24 03:42 Neut % (Auto) 81.5 % 11/19/24 03:42 Lymph % (Auto) 8.4 % 11/19/24 03:42 [place] % (Auto) 9.5 % 11/19/24 03:42 Eos % (Auto) 0.1 % 11/19/24 03:42 Baso % (Auto) 0.2 % 11/19/24 03:42 Neut # (Auto) 8.38 K/uL (1.40-6.50) H 11/19/24 03:42 Lymph # (Auto) 0.86 K/uL (1.20-3.40) L 11/19/24 03:42 [place] # (Auto) 0.98 K/uL (0.11-0.59) H 11/19/24 03:42 Eos # (Auto) 0.01 K/uL (0.00-0.50) 11/19/24 03:42 Baso # (Auto) 0.02 K/uL (0.00-0.20) 11/19/24 03:42 Immature Gran # (Auto) 0.03 K/uL (0.01-0.20) 11/19/24 03:42 Sodium 137 mmol/L (136-145) 11/21/24 05:24 Potassium 3.9 mmol/L (3.5-5.1) 11/21/24 05:24 Chloride 111 mmol/L (98-107) H 11/21/24 05:24 Carbon Dioxide 20 mmol/L (21-32) L 11/21/24 05:24 Anion Gap 6 (3-11) 11/21/24 05:24 BUN 12 mg/dl (6-23) 11/21/24 05:24 Creatinine 1.00 mg/dl (0.6-1.2) 11/21/24 05:24 Est Cr Clr Drug Dosing 82.4 ml/min 11/21/24 05:24 eGFR 69.49 11/21/24 05:24 BUN/Creatinine Ratio 12.0 (10-20) 11/21/24 05:24 Glucose 97 mg/dl (70-99(Fasting)) 11/21/24 05:24 Estimat Average Glucose 123 mg/dl 11/20/24 06:23 Hemoglobin A1c 5.9 % (4.5-5.6) H 11/20/24 06:23 Lactate 0.9 mmol/L (0.4-2.0) 11/20/24 13:48 Calcium 8.4 mg/dl (8.6-10.3) L 11/21/24 05:24 Phosphorus 2.8 mg/dl (2.5-4.9) 11/21/24 05:24 Magnesium 2.0 mg/dl (1.7-2.4) 11/21/24 05:24 Total Bilirubin 1.1 mg/dl (0.2-1.0) H 11/19/24 03:42 AST 10 U/L (13-39) L 11/19/24 03:42 ALT 7 U/L (7-52) 11/19/24 03:42 Alkaline Phosphatase 83 U/L (34-104) 11/19/24 03:42 Total Protein 7.4 gm/dl (6.0-8.3) 11/19/24 03:42 Albumin 4.1 gm/dl (3.4-5.0) 11/19/24 03:42 Globulin 3.3 gm/dl (2.5-4.0) 11/19/24 03:42 Albumin/Globulin Ratio 1.2 (0.9-2) 11/19/24 03:42 Lipase 13 U/L (11-82) 11/19/24 03:42 Urine Color Yellow 11/19/24 05:13 Urine Appearance Clear (Clear) 11/19/24 05:13 Urine pH 7.0 (4.5-7.5) 11/19/24 05:13 Ur Specific [place] 1.019 (1.000-1.030) 11/19/24 05:13 Urine Protein Trace (Negative) H 11/19/24 05:13 Urine Glucose (UA) Negative (Negative) 11/19/24 05:13 Urine Ketones 1+ (Negative) H 11/19/24 05:13 Urine Blood 2+ (Negative) H 11/19/24 05:13 Urine Nitrite Negative (Negative) 11/19/24 05:13 Urine Bilirubin Negative (Negative) 11/19/24 05:13 Urine Urobilinogen Negative (Negative) 11/19/24 05:13 Ur Leukocyte Esterase 3+ (Negative) H 11/19/24 05:13 Urine WBC (Auto) 21-50 /hpf (0-5) H 11/19/24 05:13 Urine RBC (Auto) 0-2 /hpf (0-2) 11/19/24 05:13 U Hyaline Cast (Auto) 0-2 /lpf (0-2) 11/19/24 05:13 U Epithel Cells (Auto) 0-2 /hpf (0-2) 11/19/24 05:13 Urine Bacteria (Auto) None Seen (None Seen) 11/19/24 05:13 Urine Comment 11/19/24 05:13 Impressions Retrograde Pyelogram 11/19/24 00:00 FL retrograde includes kub CLINICAL HISTORY: RIGHT STENT PLACEMENT COMPARISON STUDY: None FLUOROSCOPY TIME: 92 seconds FLUOROSCOPY IMAGES: 3 EXPOSURE DOSE: 22 mGy FINDINGS: Fluoroscopy was provided for urologic procedure. IMPRESSION: Intraoperative fluoroscopy. ACT 112: Negative or not required by law. Electronically signed by: Alon Denson M.D. 11/19/2024 3:06 PM Abdomen/Pelvis CT 11/19/24 04:07 EXAM: CT abd pelvis IV con only CLINICAL HISTORY: rlq abd pain. No gallbladder/uterus TECHNIQUE: Contiguous axial images were obtained from the level of the diaphragm to the pubic symphysis with intravenous contrast. Coronal and sagittal reconstructions were likewise performed and indicated to increase the sensitivity for detecting clinically relevant pathology. If IV contrast material had not been administered, the likelihood of detecting abnormalities relevant to the patient's condition would have been substantially decreased. CT scan was performed according to ALARA (as low as reasonable achievable). COMPARISON: 17:05:44 POT PUNCHER FINDINGS: The visualized lung bases are clear. The liver is normal in size and attenuation. No focal liver lesions are seen. There is no intra or extrahepatic biliary ductal dilatation. Hepatic vasculature is patent. The gallbladder is surgically removed. The spleen, pancreas, and right adrenal gland are unremarkable. 14 mm nodule seen in left adrenal gland. The kidneys are normal in size and attenuation. Right kidney shows non-obstructing calculus of size 3 mm in lower calyx. Right sided moderate hydronephrosis due to an obstructing calculus of size 6 mm involving right pelviureteric junction - HU around 1300. Focal cortical scarring is noted involving interpolar region of left kidney. About 29 x 18 mm size cyst with patchy wall calcification is noted involving left interpolar region- complex cyst Bosniak type II. The bladder is normal in contour. Pelvic viscera are unremarkable. No focal or diffuse bowel wall thickening or evidence of bowel obstruction is identified. The appendix is visualized in the right lower quadrant and appears within normal limits. Abdominal and pelvic vasculature is patent. No adenopathy or fluid collections are seen. No aggressive appearing osseous lesions are identified. Hysterectomy status. About 29 x 23 mm sized unilocular cyst is noted involving left ovary. IMPRESSION: 1. Right kidney shows non-obstructing calculus of size 3 mm in lower calyx.-stable. 2. Right sided moderate hydronephrosis due to an obstructing calculus of size 6 mm involving right pelviureteric junction - HU around 1300.-new finding. 3. Focal cortical scarring is noted involving interpolar region of left kidney. About 29 x 18 mm size cyst with patchy wall calcification is noted involving left interpolar region- complex cyst Bosniak type II-stable. 4. 14 mm nodule seen in left adrenal gland. 5. Left ovarian cyst as described - USG correlation suggested-new finding. Electronically signed by Louie Thakkar 11-19-2024 05:53 AM Pelvis Ultrasound 11/19/24 04:07 PELVIC ULTRASOUND CLINICAL HISTORY: RLQ abd pain, hyster, eval ovary. COMPARISON STUDY: CT of the abdomen and pelvis performed earlier today. TECHNIQUE: Transabdominal and transvaginal sonography of the pelvis was performed. FINDINGS: The uterus is surgically absent. There is color flow within each ovary. The right ovary is partially obscured but measures approximately 2 x 1.8 x 1.8 cm. The left ovary measures 3.2 x 2.3 x 3.2 cm and contains an anechoic 2.9 cm lesion consistent with a cyst. No free fluid is noted within the cul-de-sac. There is no adnexal mass. IMPRESSION: 1. 2.9 cm left ovarian cyst. 2. No sonographic evidence for ovarian torsion. 3. Status post hysterectomy. ACT 112: Negative or not required by law. Electronically signed by: Pasha Estrada M.D. 11/19/2024 8:26 AM Transvaginal US 11/19/24 04:08 PELVIC ULTRASOUND CLINICAL HISTORY: RLQ abd pain, hyster, eval ovary. COMPARISON STUDY: CT of the abdomen and pelvis performed earlier today. TECHNIQUE: Transabdominal and transvaginal sonography of the pelvis was performed. FINDINGS: The uterus is surgically absent. There is color flow within each ovary. The right ovary is partially obscured but measures approximately 2 x 1.8 x 1.8 cm. The left ovary measures 3.2 x 2.3 x 3.2 cm and contains an anechoic 2.9 cm lesion consistent with a cyst. No free fluid is noted within the cul-de- sac. There is no adnexal mass. IMPRESSION: 1. 2.9 cm left ovarian cyst. 2. No sonographic evidence for ovarian torsion. 3. Status post hysterectomy. ACT 112: Negative or not required by law. Electronically signed by: Pasha Estrada M.D. 11/19/2024 8:26 AM Hospital Course (1) Hydronephrosis: (2) Calculus of proximal right ureter: Plan 49yo F with PMH of bilateral nephrolithiasis, Romero-Denlos syndrome,Fibromyalgia, tobacco use disorder and other medical problems listed below who presents to ED for evaluation of worsening right flank pain, nausea and vomiting x 2 days who was admitted for treatment of obstructive ureteral stone in R UPJ calculus. Obstructive R UPC stone with associated R hydronephrosis Possible complicated UTI meeting SIRs criteria Reporting Tmax 101 prior to arrival, Elevated HR 100, no leukocytosis, possible infected stone History of nephrolithiasis requiring procedural treatment, follows with Dr. Bledsoe of [facility] urology CT abdomen pelvis with IV contrast which demonstrated moderate right hydronephrosis secondary to an obstructing 6 mm right UPJ calculus Urinalysis showed trace protein, 1+ ketones, 2+ blood, 3+ LE, 21-50 WBC, negative for bacteria. Urology consulted S/p cystoscopy, right retrograde pyelogram, right ureteral stent placement on 11/19/24 Received IVF, continued on home Flomax Creat 1.1 -> 1.2 -> 1.0 11/20: Febrile overnight with soft BPs this AM. Blood cultures sent. Lactate 0.9. Given NSS 500cc bolus x 2 with improvement. Pain meds likely contributing to hypotension. Blood cultures NGTD, final report pending at discharge Initial urine culture contaminated - repeat collected on 11/20 - pin point growth, final ID/sensitivities pending at discharge Received ceftriaxone, will d/c on a 7 day course of Bactrim Tobacco use disorder Smokes 1/2 ppd Nicotine patch ordered Fibromyalgia Romero-Denlos syndrome Follows with Dr. Suh of rheum Continue PRN Tizanidine, tylenol and ibuprofen as needed Incidental CT Findings Left ovarian cyst - f/u US showing 2.9cm left ovarian cyst 14mm left adrenal gland nodule ^ outpatient follow up Total Time Total Time Spent Total Time Spent (In Minutes): 40 Discharge Plan Discharge Items Patient Disposition: Home - Self-Care Reason For Visit: Right flank pain Discharge Diagnosis: Kidney Stone Condition on Discharge: Good Activity: Resume your previous activity Non-emergency contact: Primary Care Provider and Urologist Call non-emergency contact if: you have any medication questions, your symptoms worsen, your pain is not controlled, your pain is worsening and you have a fever Follow-up/Referrals: Tyrell Garcia MD [Physician] - (Office will call you to schedule follow up appointment) Oliverio Solitario MD [Primary Care Provider] - 11/28/24 1:00 pm (Date & Time 11/28/2024 1:00 PM Provider: Angelica Balderas PA-C [facility] ) Diet: Regular Addtl Attending Provider Instructions: You presented to the hospital for evaluation of right flank pain. You were found to have an obstructing kidney stone. Urology was consulted and you underwent cystoscopy and stent placement on 11/19/24. You will need to follow up for stent removal and definitive stone treatment. The office will call you to schedule an appointment. You are going to be discharged on a course of antibiotics for suspected urinary tract infection. 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 Please call our office at [phone] with any questions, concerns or need to reschedule appointments for any reason. We are happy to assist you. While you have a ureteral stent in place: Some discomfort is normal. Certain movements may trigger pain or a feeling that you need to urinate. You may also feel mild soreness or pressure before or during urination. These symptoms should go away a few days after the stent is removed. Your urine may be slightly pink or red. This is due to bleeding caused by minor irritation from the stent. This may happen on and off while you have the stent, it is not harmful and is to be expected. Medication to help minimize discomfort or bladder spasms, or to prevent infection may be prescribed. Take this as directed. Drink plenty of fluids to help flush out your urinary tract. If you go home with a catheter, wash with soapy water and a fresh washcloth twice daily. We recommend mild bar soap such as Dial or Dove. When to call [facility] at [phone]: Your urine contains heavy blood clots You are constantly leaking urine Fever of 101F or higher, chills, nausea, or vomiting Your pain is not relieved with medication The end of the stent comes out of your urethra Pending Studies at Discharge: Yes Studies:: Urine Culture, Blood Culture Stand-Alone Forms: My [facility] Zero Carbon Food, Smoking Cessation Medications and DC Order Prescriptions: New phenazopyridine [Pyridium] 100 mg Tablet 100 mg PO TID PRN (Reason: pain) Qty: 20 0RF oxycodone 5 mg Tablet 5 mg PO Q4H PRN (Reason: pain) Qty: 10 0RF sulfamethoxazole-trimethoprim [Bactrim DS] 800-160 mg tablet 1 tab PO BID Qty: 14 0RF Continued ondansetron 4 mg Tablet,Disintegrating 4 mg PO Q6 PRN (Reason: Nausea) tizanidine 4 mg Capsule 4 mg PO Q8H PRN (Reason: muscle spasms) cholecalciferol (vitamin D3) [Vitamin D3] 5,000 unit Tablet 5,000 unit PO QAM tamsulosin 0.4 mg capsule 0.4 mg PO QAM docusate sodium [Colace] 100 mg capsule 200 mg PO DAILY multivitamin Tablet 1 tab PO DAILY albuterol sulfate 90 mcg/actuation HFA aerosol inhaler 2 puff INHALATION DIRECTED PRN (Reason: Shortness Of Breath) triamcinolone acetonide 0.5 % Cream 1 applic TOPICAL HS cyanocobalamin (vitamin B-12) 1,000 mcg Tablet 1,000 mcg PO DAILY famotidine 20 mg Tablet 20 mg PO BID PRN (Reason: Acid Reflux) zinc 25 mg Tablet 25 mg PO DAILY hydroxyzine HCl 10 mg tablet 10 mg PO Q6 PRN (Reason: Anxiety) acetaminophen 325 mg capsule 650 mg PO Q6H PRN (Reason: Pain) Rx Instructions: Alternate with Ibuprofen polyethylene glycol 3350 17 gram Powder In Packet 17 g PO DAILY PRN (Reason: Constipation) allopurinol 300 mg tablet 300 mg PO DAILY Discontinued ibuprofen 800 mg tablet 800 mg PO TID PRN (Reason: Pain) Discharge Orders: Discharge Order (Routine); Ordered 11/21/24 Ordered By: Alie Cleveland Admission Data Admit Date/Time: 11/19/24 07:50 Attending Provider: Tommy Gotti Admit Provider: Elan Chanel Primary Care Provider: Oliverio Solitario Other Providers: Parminder Bledsoe; Elan Chanel; Tyrell Garcia Other Interventions: Discharge Summary Assessment (RN) Last Done: 11/21/24 14:10 Supervising Physician Co-Signing Physician Notes Pt seen and examined by me, care coordinated w/ NICOLA Small, pls refer to her note above for further detail. Pt feels improved today, afebrile, in NAD. Lungs CTAB, heart sounds regular, abdomen soft, mildly tender at RLQ. No LE edema, moves extremities. Pt wishes to be discharged. Discussed that cultures are not back yet, she is comfortable with that. Discussed w/ Dr. Garcia - recommends additional 7 days of Bactrim to get her through, plan for follow up w/ urology in a week. MD Ana María
== END 2024-11-21 15:36 | disposition home or self-care (01) | DRG 660 ==
LOC: ED 03:26 → EDINP 07:50 → SUATTDRO 07:50 → EDINP 13:33 → 3N 16:09